=== PATIENT | female | born 1970 | race Caucasian/White ===

== ENCOUNTER 2016-11-23 07:14 | Day surgery (SDC) ==
[2016-08-15 19:13] VITALS: BMI 35.5
[2016-11-23] MEDS ORDERED: LIDOCAINE 1% 20 ML MDV ID ONE (07:40)
[2016-11-23] MEDS ORDERED: ALBUTEROL 0.083% NEB NEB STA (08:01)
[2016-11-23] MEDS ORDERED: DIPRIVAN 20 ML VIAL IVP ONE (08:20)
[2016-11-23] MEDS ORDERED: SUBLIMAZE ONE (08:20)
[2016-11-23] MEDS ORDERED: VERSED ONE (08:20)
[2016-11-23] MEDS ORDERED: ANECTINE ONE (08:20)
[2016-11-23 09:35] VITALS: BP 120/80; TEMP 97.4
--- NOTE | 2016-11-24 12:58 | OP ---
PREOPERATIVE DIAGNOSIS: CHRONIC LARYNGITIS, VOCAL CORD POLYPS POSTOPERATIVE DIAGNOSIS: BILATERAL LEUKOPLAKIA OF VOCAL CORDS OPERATION: DIRECT LARYNGOSCOPY WITH BIOPSY OF VOCAL CORDS PROCEDURE: The patient was taken to surgery, placed on the table and general anesthesia was administered. The anterior laryngoscope was inserted down the level of the vocal cords and using a campos, the scope was secured and then using 400 mm lens, inspection of both vocal cords revealed blocked and moderately severe leukoplakia and edema of both vocal cords. Using both left and right cup forceps, both focal cords were stripped of the area of leukoplakia. Bleeding was minimal. The patient's piriformis sinuses as well as base of the tongue appeared to be free of disease. The patient was then extubated and returned to the recovery room in satisfactory condition. ANDREWS
--- NOTE | 2016-11-24 13:01 | HP ---
HISTORY: This is a 46-year-old white female with history of smoking one pack of cigarettes a day for approximately 40 years. She has had some chronic laryngitis that has not resolved with reasonable medical management. History of ear disease is essentially negative. She does have a bipolar personality and takes medications. PHYSICAL EXAMINATION: EARS: Clear. NOSE: Normal mucosa. MOUTH: Oropharynx reveals no lesions. Indirect laryngoscopy reveals edema of vocal cords. NECK: Supple. CHEST: Clear. HEART: Regular rhythm and rate. ABDOMEN: Nondistended. LOWER EXTREMITIES: Within normal limits. IMPRESSION: 1. VOCAL CORD EDEMA WITH POLYPS. PLAN: Direct laryngoscopy and biopsy. MTDD
== END 2016-11-23 09:53 | disposition home or self-care (01) ==
LOC: SURG 07:14
PROVIDERS: ATTEND Otolaryngology
DX: J37.0 Chronic laryngitis (principal); J38.1 Polyp of vocal cord and larynx; J38.3 Other diseases of vocal cords; F17.210 Nicotine dependence, cigarettes, uncomplicated
CPT/HCPCS: 94640

== ENCOUNTER 2017-04-26 17:15 | Emergency (ER) ==
[2017-04-26] MEDS ORDERED: SODIUM CHLORIDE 1,000 ML IV STA (17:23)
[2017-04-26] MEDS ORDERED: LEVAQUIN 500 MG in PREMIX 100 ML D5W 1 BAG IV STA (17:24)
[2017-04-26 17:26] VITALS: BP 111/78; TEMP 102; BMI 30.7
[2017-04-26] MEDS ORDERED: TYLENOL PO STA (17:34)
[2017-04-26] MEDS ORDERED: LEVAQUIN 100 ML IV ONE (17:46)
[2017-04-26 17:48] LABS: BASOPHILS % (AUTO) 0.2 % (0.0-3.0); HEMATOCRIT 41.6 % (37.0-47.0); HEMOGLOBIN 14.6 g/dl (12.0-16.0); IMMATURE GRANULOCYTE % (AUTO) 0.5 % (0.0-5.0); MEAN CORPUSCULAR HEMOGLOBIN 31.7 pg (27.0-31.0); MEAN CORPUSCULAR HGB CONC 35.1 (31.8-35.4); MEAN CORPUSCULAR VOLUME 90.4 fl (81.0-99.0); MONOCYTES # (AUTO) 0.7 K/uL (0.4-2.0); MONOCYTES % (AUTO) 4.3 (0-10); NEUTROPHILS # (AUTO) 14.3 K/ul (2.0-6.9); PLATELET COUNT 254 10^3/uL (140-440); WHITE BLOOD COUNT 16.01 K/ul (4.6-10.2)
[2017-04-26 18:02] LABS: BILIRUBIN,URINE Negative (NEGATIVE); KETONES,URINE Negative (NEGATIVE); LEUKOCYTE ESTERASE ,URINE Negative (NEGATIVE); NITRITE,URINE Negative (NEGATIVE); PROTEIN,URINE 2+ (NEGATIVE); URINE, BLOOD 2+ (NEGATIVE)
[2017-04-26 18:04] LABS: ALBUMIN 3.5 g/dL (3.4-5.0); ALBUMIN/GLOBULIN RATIO 0.83; ANION GAP 14.5; BILIRUBIN,TOTAL 0.95 mg/dL (0.00-1.20); BUN/CREATININE RATIO 15.66; CALCIUM 9.6 mg/dL (8.2-10.2); CREATININE 0.83 mg/dL (0.60-1.30); POTASSIUM 3.5 mmol/L (3.5-5.10); TOTAL PROTEIN 7.7 g/dL (6.4-8.2)
[2017-04-26 18:07] LABS: ADD URINE MICROSCOPIC YES
[2017-04-26 18:09] LABS: BACTERIA,URINE 1+ (NOT PRESENT)
--- NOTE | 2017-04-26 18:14 | CT ---
Exam: CT abdomen and pelvis without IV contrast. Clinical indication: Flank pain and fever. Comparison is made to the prior study dated 11/22/2007. Findings: There is no free intra-abdominal gas or fluid. There is a 0.4 cm stone obstructing at the right ureteropelvic junction causing mild right-sided hyd ronephrosis. There is a 0.8 cm right-sided nonobstructive renal calculus. There are no other renal calculi bilaterally. The bilateral kidneys are otherwise unremarkable, given the limitations of an unenhanced CT. The liver, gallbladder, pancreas, and spleen are unremarkable given the limitations of an unenhanced CT, other than incidental punctate splenic calcifications consistent with old healed granulomatous disease. There is a 1.9 x 1.5 cm left adrenal nodule which has internal CT density less than 10 consistent wi th intracellular lipids and an incidental diagnosis of an adrenal adenoma. The right adrenal gland is unremarkable. There is early aortoiliac atherosclerotic vascular calcifications. There are no enlarged abdominal or pelvic lymph nodes, by size criteria. There has been a prior hysterectomy. There is mild sigmoid diverticulosis, without evidence of diverticulitis. The appendix appears to b e absent. The remainder of the bowel is unremarkable. There are multiple bilateral calcified pulmonary granulomas, consistent with old healed granulomatou s disease. There is some areas of atelectasis and/or scarring within the right middle lobe and ling kayden. The remainder the visualized portions of the lower thorax are within normal limits. There is lower lumbar degenerative facet disease. The remainder of the visualized bony structures a re unremarkable. Impression: 1. 0.4 cm stone obstructing at the right ureteropelvic junction causing right-sided hydronephrosis. 2. 0.8 cm right-sided nonobstructive renal calculus. No other renal calculi bilaterally. 3. Mild sigmoid diverticulosis, without evidence of diverticulitis.
--- NOTE | 2017-04-26 18:18 | ED.PDOC ---
General ED Provider: Dr. ELIZABETH ARVIZU-ER Chief Complaint: Urinary Problem Stated Complaint: i am hurting and running a fever Time Seen by Physician: 17:20 Mode of Arrival: Walk-In Information Source: Patient Exam Limitations: No limitations Primary Care Provider: APRIL INIGUEZ Nursing and Triage Documentation Reviewed and Agree: Yes Complaint Exam - UTI Female Complaint/Exam Patient Complains of: Reports: Painful urination Onset/Duration: 2 days Symptoms Are: Still present Initial Severity: Mild Current Severity: Moderate Location of Pain: Reports: Right Associated Signs and Symptoms: Reports: Fever, Flank pain CVA Tenderness: Yes Suprapubic Tenderness: No Differential Diagnoses: Pyelonephritis, Ureteral Calculus Review of Systems - Review Of Systems Constitutional: Reports: Chills, Fever Eyes: Reports: No symptoms, Glasses Ears, Nose, Mouth, Throat: Reports: No symptoms Respiratory: Reports: No symptoms Cardiac: Reports: No symptoms GI: Reports: No symptoms : Reports: Frequency, Flank pain Musculoskeletal: Reports: No symptoms Skin: Reports: No symptoms Neurological: Reports: No symptoms Endocrine: Reports: No symptoms Hematologic/Lymphatic: Reports: No symptoms All Other Systems: Reviewed and Negative Past Medical History - Past Medical History Previously Healthy: No Endocrine: Reports: Hypothyroid Cardiovascular: Reports: Hypertension Respiratory: Reports: Asthma, Bronchitis Hematological: Reports: None Gastrointestinal: Reports: None Genitourinary: Reports: None Neuro/Psych: Reports: None Musculoskeletal: Reports: None Cancer: Reports: None Last Menstrual Period: na - Surgical History General Surgical History: Reports: Hysterectomy, Orthopedic (Knee replacement, arm sling ), Other (colon surgery ) - Family History Family History: Reports: Unknown - Social History Smoking Status: Current some day smoker Hx Substance Use: No Alcohol Screening: None Lives: With family - Immunizations Tetanus Shot up to Date: Yes Physical Exam - Physical Exam Appearance: Well-appearing Pain Distress: Mild Eyes: KIARA ENT: Ears normal Neck: Supple Respiratory: Airway patent Cardiovascular: RRR, Pulses normal, No rub, No murmur GI/: Soft, Nontender, No masses, Bowel sounds normal, No Organomegaly Musculoskeletal: Normal strength, ROM intact, No edema, No calf tenderness Skin: Warm, Dry, Normal color Neurological: Sensation intact, Motor intact, Reflexes intact, Cranial nerves intact, Alert, Oriented Psychiatric: Affect appropriate, Mood appropriate Interpretation - Radiology Interpretation Radiology Interpretation By: Radiologist Radiology Results: Positive Exam Interpreted: CT Scan Physician Notification - Case Discussed Physician Notified: [email or web address] Time of Notification: 18:17 Critical Care Note - Critical Care Note Total Time (mins): 0 Course - Course Hematology/Chemistry: 04/26/17 17:35 04/26/17 17:35 Orders, Labs, Meds: Lab Review 04/26/17 04/26/17 17:25 17:35 WBC 16.01 H RBC 4.60 Hgb 14.6 Hct 41.6 MCV 90.4 MCH 31.7 H MCHC 35.1 RDW Coeff of Bel 15.9 H Plt Count 254 Immature Gran % (Auto) 0.5 Neut % (Auto) 89.0 Lymph % (Auto) 6.0 L [place] % (Auto) 4.3 Eos % (Auto) 0.0 Baso % (Auto) 0.2 Immature Gran # (Auto) 0.1 Neut # 14.3 H Lymph # 1.0 [place] # 0.7 Eos # 0.0 Baso # 0.0 Sodium 136 Potassium 3.5 Chloride 102 Carbon Dioxide 23 Anion Gap 14.5 BUN 13 Creatinine 0.83 Estimated GFR (MDRD) 73.00 BUN/Creatinine Ratio 15.66 Glucose 118 H Lactic Acid 15.0 Calcium 9.6 Total Bilirubin 0.95 AST 13 L ALT 8 L Alkaline Phosphatase 95 Total Protein 7.7 Albumin 3.5 Globulin 4.2 Albumin/Globulin Ratio 0.83 Urine Color Yellow Urine Clarity Clear Urine pH 6.0 Ur Specific [place] 1.015 Urine Protein 2+ Urine Glucose (UA) Negative Urine Ketones Negative Urine Blood 2+ Urine Nitrite Negative Urine Bilirubin Negative Urine Urobilinogen 0.2 Ur Leukocyte Esterase Negative Urine Microscopic RBC 5-10 Urine Microscopic WBC 10-20 Ur Squamous Epith Cells 0-2 Urine Bacteria 1+ Orders Category Date Time Status ED IV/MEDIPORT/POWERPORT .ONCE EMERGENCY 04/26/17 17:23 Active BLOOD CULTURE Stat LAB 04/26/17 17:35 Received CBC W/ AUTO DIFF Stat LAB 04/26/17 17:35 Completed COMPREHENSIVE METABOLIC PANEL Stat LAB 04/26/17 17:35 Completed LACTIC ACID Stat LAB 04/26/17 17:35 Completed PROCALCITONIN Stat LAB 04/26/17 17:39 Received URINALYSIS C & S IF INDICATED Stat LAB 04/26/17 17:25 Completed URINE CULTURE Stat LAB 04/26/17 17:25 Received 0.9 % Sodium Chloride [Saline Flush] MEDS 04/26/17 17:23 Ordered 1 syr IVF PRN PRN Acetaminophen [Tylenol] MEDS 04/26/17 17:34 Discontinued 650 mg PO ONCE STA Levofloxacin/D5w [Levaquin] 100 ml MEDS 04/26/17 17:46 Discontinued IV .STK-MED Levofloxacin/D5w [Levaquin] 500 mg MEDS 04/26/17 17:24 Active Premix 100 ml D5w 1 bag IV ONCE Sodium Chloride 0.9% [Sodium Chloride] 1,000 ml MEDS 04/26/17 17:23 Active IV 100 mls/hr CT ABDOMEN/PELVIS WO CONTRAST Stat RADS 04/26/17 17:24 Completed Medications Generic Name Dose Route Start Last Admin Trade Name Freq PRN Reason Stop Dose Admin Levofloxacin/Dextrose 500 mg/ 100 mls @ 100 mls/hr 04/26/17 17:24 04/26/17 18 :05 Dextrose IV 04/26/17 18:23 100 mls/hr ONCE STA Administration Sodium Chloride 1,000 mls @ 100 mls/hr 04/26/17 17:23 04/26/17 18:05 Sodium Chloride IV 04/27/17 03:22 100 mls/hr .Q10H STA Administration Sodium Chloride 1 syr 04/26/17 17:23 Saline Flush IVF PRN PRN To flush IV Discontinued Medications Generic Name Dose Route Start Last Admin Trade Name Freq PRN Reason Stop Dose Admin Acetaminophen 650 mg 04/26/17 17:34 04/26/17 18:05 Tylenol PO 04/26/17 17:35 650 mg ONCE STA Administration Vital Signs: Temp Pulse Resp BP Pulse Ox 04/26/17 17:16 102 F H 130 H 16 111/78 86 L Departure - Departure Time of Disposition: 18:18 Disposition: TSF SHORT-TRM HOSP Discharge Problem: Ureteral stone with hydronephrosis Instructions: Ureteral Stones (ED) Condition: Good Pt referred to PMD for follow-up: Yes Allergies/Adverse Reactions: Allergies amoxicillin trihydrate [From Amoxil] Allergy (Severe, Unverified 03/16/17 10:42) N/V and diarrhea Patient to notify drugstore clarithromycin [From Biaxin] Adverse Reaction (Verified 08/15/16 19:16) duloxetine HCl [From Cymbalta] Adverse Reaction (Verified 08/15/16 19:16) venlafaxine [From Effexor] Adverse Reaction (Verified 08/15/16 19:16) Home Medications: Ambulatory Orders Carbamazepine [Tegretol] 500 mg PO BID 10/03/13 Diazepam [Valium] 10 mg PO TID 10/03/13 Levothyroxine Sodium [Synthroid] 125 mcg PO DAILY 10/03/13 Zolpidem Tartrate [Ambien] 5 mg PO BEDTIME 10/03/13 Carbidopa/Levodopa [Sinemet 25-100 mg Tablet] 1 each PO DAILY 07/16/16 Fluoxetine HCl [Prozac] 60 mg PO DAILY 07/16/16 Gabapentin [Neurontin] 800 mg PO BID 07/16/16 Propranolol HCl [Inderal] 20 mg PO BID 07/16/16 Lurasidone HCl [Latuda] 40 mg PO DAILY 08/15/16 Atorvastatin Calcium [Lipitor] 20 mg PO 20 11/23/16 Budesonide/Formoterol Fumarate [Symbicort 80-4.5 Mcg Inhaler] 2 puff IH BID 09/29 Prazosin HCl [Minipress] 2 mg PO BEDTIME 11/23/16 Ranitidine HCl [Zantac] 150 mg PO BIDAC 11/23/16 Tiotropium [place] [Spiriva] 1 cap IH DAILY 11/23/16 Gabapentin 800 mg PO TID 03/16/17 Transfer Form Completed: Yes Disposition Discussed With: Patient
== END 2017-04-26 19:10 | disposition short-term general hospital (02) ==
LOC: ED 17:15
DX: N13.2 Hydronephrosis with renal and ureteral calculous obstruction (principal); E03.9 Hypothyroidism, unspecified; I10 Essential (primary) hypertension; F17.210 Nicotine dependence, cigarettes, uncomplicated; Z79.899 Other long term (current) drug therapy
CPT/HCPCS: 36415; 80053; 81001; 83605; 84145; 85025; 87040; 87086; 87186; 96360; 96366; 99284

== ENCOUNTER 2017-04-26 19:26 | Outpatient (CLI) ==
[2017-04-26 17:26] VITALS: BMI 30.7
== END 2017-04-26 19:27 | disposition short-term general hospital (02) ==
LOC: AMBL 19:26
PROVIDERS: ATTEND Emergency Medicine
DX: N20.0 Calculus of kidney (principal)

== ENCOUNTER 2017-08-12 16:27 | Emergency (ER) ==
[2017-08-12 16:30] VITALS: BP 134/86; TEMP 97.9; BMI 29.0
--- NOTE | 2017-08-12 17:09 | ED.PDOC ---
General ED Provider: Dr. ASHLEY CHARLES Chief Complaint: Sore Throat Stated Complaint: Sore throat since yesterday, much worse today. Hard to speak secondary to pain. 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 Subjective fever. No other symptoms except tired. Time Seen by Physician: 17:06 Mode of Arrival: Walk-In Information Source: Patient Primary Care Provider: APRIL MANUEL Nursing and Triage Documentation Reviewed and Agree: Yes EENT Complaint Exam - Throat Complaint/Exam Onset/Duration: 1 day Symptoms Are: Still present Timimg: Constant Initial Severity: Moderate Current Severity: Severe Aggravating: Reports: Eating Alleviating: Reports: None Associated Signs and Symptoms: Reports: Dysphagia (mild dysphagia) Related History: Reports: Smoking Maria Dolores-tonsillar Fluctuence: No Scarlatinaform Rash Present: No Exanthem: Present: Pharynx (pustular tonsils) Stridor Present: No Sinus Tenderness Present: No Tonsillar Hypertrophy Present: Yes Tonsillar Exudate Present: Yes (pustular) Maria Dolores-tonsillar Swelling Present: No Adenopathy Present: No Splenomegaly Present: No Differential Diagnoses: Pharyngitis (strep vs viral) Quality Indicators For Pneumonia: SpO2 assessed, Vital signs, Mental status assessed Quality Indicators for Non-Traumatic CP and Syncope: Advised to stop smoking Review of Systems - Review Of Systems Constitutional: Reports: Fever (subjective), Malaise Eyes: Reports: No symptoms Ears, Nose, Mouth, Throat: Reports: Throat pain Respiratory: Reports: Cough (HEAD AND NECK SURGEON) Cardiac: Reports: No symptoms GI: Reports: No symptoms : Reports: No symptoms Musculoskeletal: Reports: No symptoms Skin: Reports: No symptoms Neurological: Reports: No symptoms All Other Systems: Reviewed and Negative Past Medical History - Past Medical History Previously Healthy: No Endocrine: Reports: Hypothyroid Cardiovascular: Reports: Hypertension Respiratory: Reports: Asthma, Bronchitis Hematological: Reports: None Gastrointestinal: Reports: None Genitourinary: Reports: None Neuro/Psych: Reports: None Musculoskeletal: Reports: None Cancer: Reports: None Last Menstrual Period: HYSTERECTOMY - Surgical History General Surgical History: Reports: Hysterectomy, Orthopedic (Knee replacement, arm sling ), Other (colon surgery ) - Family History Family History: Reports: Unknown - Social History Smoking Status: Current some day smoker Smoking Cessation Counseling Time: > 3 min - 10 min Hx Substance Use: No Alcohol Screening: None Lives: Alone - Immunizations Tetanus Shot up to Date: No Influenza Vaccine within 12 Months: No Pneumococcal Vaccine up to Date: No Physical Exam - Physical Exam Appearance: Ill-appearing, Well-nourished, Obese Ill-appearing: Mild Pain Distress: Moderate Eyes: KIARA, EOMI, Conjunctiva clear ENT: Nose normal, TMs [place], Erythema (voice is hoarse whisper), Exudate ( pharynx erythematous with enlarged pustular tonsils, TMs arellano and dull) Neck: Supple Respiratory: Airway patent, Breath sounds clear, Breath sounds equal, Respirations nonlabored Cardiovascular: RRR, Pulses normal, No rub, No murmur GI/: Soft, Nontender, No masses, Bowel sounds normal, No Organomegaly Musculoskeletal: Normal strength, ROM intact, No edema, No calf tenderness Skin: Warm, Dry, Normal color Neurological: Sensation intact, Motor intact, Reflexes intact, Cranial nerves intact, Alert, Oriented Psychiatric: Affect appropriate, Mood appropriate Critical Care Note - Critical Care Note Total Time (mins): 0 Course - Course Orders, Labs, Meds: Orders Category Date Time Status STREP SCREEN Stat LAB 08/12/17 17:05 Uncollected Vital Signs: Temp Pulse Resp BP Pulse Ox 08/12/17 16:27 97.9 F 77 16 134/86 96 Departure - Departure Time of Disposition: 17:39 Disposition: HOME SELF-CARE Discharge Problem: Pharyngitis Instructions: Pharyngitis (ED) Condition: Good Pt referred to PMD for follow-up: No (see doctor if worsens or no better in 3 days) Allergies/Adverse Reactions: Allergies amoxicillin trihydrate [From Amoxil] Allergy (Severe, Unverified 08/12/17 16:30) N/V and diarrhea Patient to notify drugstore clarithromycin [From Biaxin] Adverse Reaction (Verified 08/12/17 16:30) duloxetine HCl [From Cymbalta] Adverse Reaction (Verified 08/12/17 16:30) venlafaxine [From Effexor] Adverse Reaction (Verified 08/12/17 16:30) Home Medications: Ambulatory Orders Carbamazepine [Tegretol] 500 mg PO BID 10/03/13 Diazepam [Valium] 10 mg PO TID 10/03/13 Levothyroxine Sodium [Synthroid] 125 mcg PO DAILY 10/03/13 Zolpidem Tartrate [Ambien] 5 mg PO BEDTIME 10/03/13 Carbidopa/Levodopa [Sinemet 25-100 mg Tablet] 1 each PO DAILY 07/16/16 Fluoxetine HCl [Prozac] 60 mg PO DAILY 07/16/16 Gabapentin [Neurontin] 800 mg PO BID 07/16/16 Propranolol HCl [Inderal] 20 mg PO BID 07/16/16 Lurasidone HCl [Latuda] 40 mg PO DAILY 08/15/16 Atorvastatin Calcium [Lipitor] 20 mg PO 20 11/23/16 Budesonide/Formoterol Fumarate [Symbicort 80-4.5 Mcg Inhaler] 2 puff IH BID 09/29 Prazosin HCl [Minipress] 2 mg PO BEDTIME 11/23/16 Ranitidine HCl [Zantac] 150 mg PO BIDAC 11/23/16 Tiotropium [place] [Spiriva] 1 cap IH DAILY 11/23/16 Gabapentin 800 mg PO TID 03/16/17 Acetaminophen with Codeine [Tylenol #3 Tab] 1 tab PO Q4H PRN #20 tablet Disposition Discussed With: Patient
[2017-08-12] MEDS ORDERED: SOLU-MEDROL 125 MG IM STA (17:33)
== END 2017-08-12 18:00 | disposition home or self-care (01) ==
LOC: ED 16:27
DX: J02.9 Acute pharyngitis, unspecified (principal); F17.210 Nicotine dependence, cigarettes, uncomplicated
CPT/HCPCS: 87651; 87880; 96372; 99283

== ENCOUNTER 2017-10-25 12:35 | Outpatient (CLI) | END 2017-10-25 12:36 | disposition home or self-care (01) | LOC: LAB 12:35 | PROVIDERS: ATTEND Family Medicine | DX: A09 Infectious gastroenteritis and colitis, unspecified (principal) | CPT/HCPCS: 36415 ==

== ENCOUNTER 2017-10-27 12:53 | Emergency (ER) ==
[2017-10-27 12:57] VITALS: BP 118/90; TEMP 98.4; BMI 28.1
[2017-10-27 13:42] LABS: BASOPHILS % (AUTO) 0.2 % (0.0-3.0); EOSINOPHILS # (AUTO) 0.2 K/ul (0.0-0.7); HEMATOCRIT 46.4 % (37.0-47.0); HEMOGLOBIN 16.1 g/dl (12.0-16.0); IMMATURE GRANULOCYTE % (AUTO) 0.3 % (0.0-5.0); LYMPHOCYTES # (AUTO) 3.9 K/uL (0.60-3.4); LYMPHOCYTES % (AUTO) 33.4 (10.0-50.0); MEAN CORPUSCULAR HEMOGLOBIN 32.1 pg (27.0-31.0); MEAN CORPUSCULAR HGB CONC 34.7 (31.8-35.4); MEAN CORPUSCULAR VOLUME 92.6 fl (81.0-99.0); MONOCYTES # (AUTO) 1.5 K/uL (0.4-2.0); MONOCYTES % (AUTO) 12.4 (0-10); NEUTROPHILS % (AUTO) 51.7; PLATELET COUNT 266 10^3/uL (140-440); RED BLOOD COUNT 5.01 10^6/ul (4.20-5.40); WHITE BLOOD COUNT 11.65 K/ul (4.6-10.2)
[2017-10-27 14:05] LABS: FLU INTERNAL QC INTERNAL QC VALID; RAPID FLU A NEGATIVE (NEGATIVE); RAPID FLU B NEGATIVE (NEGATIVE)
[2017-10-27 14:05] LABS: BILIRUBIN,URINE 1+ (NEGATIVE); KETONES,URINE Negative (NEGATIVE); LEUKOCYTE ESTERASE ,URINE 1+ (NEGATIVE); NITRITE,URINE Positive (NEGATIVE); PROTEIN,URINE 1+ (NEGATIVE); URINE, BLOOD 1+ (NEGATIVE)
[2017-10-27 14:11] LABS: ADD URINE MICROSCOPIC YES; BACTERIA,URINE 3+ (NOT PRESENT)
[2017-10-27 14:13] LABS: ALANINE AMINOTRANSFERASE < 6 U/L (12-78); ALBUMIN 3.5 g/dL (3.4-5.0); ALBUMIN/GLOBULIN RATIO 0.88; ALKALINE PHOSPHATASE 130 U/L (42-98); AMYLASE 16 U/L (25-115); ANION GAP 15.9; ASPARTATE AMINO TRANSFERASE 8 U/L (15-37); BILIRUBIN,TOTAL 0.57 mg/dL (0.00-1.20); BLOOD UREA NITROGEN 10 mg/dL (7-18); BUN/CREATININE RATIO 12.34; CALCIUM 9.4 mg/dL (8.2-10.2); CARBON DIOXIDE 21 mmol/L (21-32); CHLORIDE 105 mmol/L (98-107); CREATININE 0.81 mg/dL (0.60-1.30); GLUCOSE 108 mg/dL (70-110); POTASSIUM 2.9 mmol/L (3.5-5.10); SODIUM 139 mmol/L (136-145); TOTAL PROTEIN 7.5 g/dL (6.4-8.2)
[2017-10-27 14:16] LABS: LIPASE 7 U/L (8-78)
[2017-10-27] MEDS ORDERED: POTASSIUM CHLORIDE PREMIX RUN 10 MEQ in PREMIX 100 ML WATER 1 BAG IV STA (14:30)
[2017-10-27] MEDS ORDERED: K-DUR PO STA (14:31)
[2017-10-27] MEDS ORDERED: SODIUM CHLORIDE 1,000 ML IV STA (14:32)
--- NOTE | 2017-10-27 14:34 | CT ---
EXAM: CT abdomen pelvis without intravenous contrast 10/27/2017. Sagittal and coronal reformatted i mages obtained HISTORY: Pain COMPARISON: 04/26/2017 FINDINGS: The liver, gallbladder, adrenal glands, kidneys, spleen and pancreas show no acute abnorma lity. There is no bowel obstruction. Decompressed urinary bladder. Upper normal fluid filled distal small bowel with mesenteric edema. This likely relates to enteritis and/or ileus. No transition point to suggest obstruction. Air-fluid levels throughout the colon mosher ggestive of diarrhea. IMPRESSION: 1. Upper normal-caliber fluid-filled distal small bowel. No transition point to suggest obstruction . This likely represents enteritis and/or ileus 2. Mild associated mesenteric edema. 3. Air-fluid levels of the colon suggesting diarrhea.
[2017-10-27] MEDS ORDERED: POTASSIUM CHLORIDE PREMIX RUN 100 ML IV ONE (14:44)
[2017-10-27 17:02] LABS: BUN/CREATININE RATIO 13.23; CALCIUM 7.5 mg/dL (8.2-10.2); CREATININE 0.68 mg/dL (0.60-1.30)
--- NOTE | 2017-10-27 17:09 | ED.PDOC ---
General ED Provider: Dr. SARATH FOOTE Chief Complaint: Diarrhea Stated Complaint: DIARRHEA , ABDOMINAL PAIN Time Seen by Physician: 13:00 Mode of Arrival: Walk-In Information Source: Patient Exam Limitations: No limitations Primary Care Provider: APRLI MANUEL Nursing and Triage Documentation Reviewed and Agree: Yes Review of Systems - Review Of Systems Constitutional: Reports: No symptoms Eyes: Reports: No symptoms Ears, Nose, Mouth, Throat: Reports: No symptoms Respiratory: Reports: No symptoms Cardiac: Reports: No symptoms GI: Reports: No symptoms : Reports: No symptoms Musculoskeletal: Reports: No symptoms Skin: Reports: No symptoms Neurological: Reports: No symptoms Endocrine: Reports: No symptoms Hematologic/Lymphatic: Reports: No symptoms All Other Systems: Reviewed and Negative Past Medical History - Past Medical History Previously Healthy: No Endocrine: Reports: Hypothyroid Cardiovascular: Reports: Hypertension Respiratory: Reports: Asthma, Bronchitis Hematological: Reports: None Gastrointestinal: Reports: None Genitourinary: Reports: None Neuro/Psych: Reports: None Musculoskeletal: Reports: None Cancer: Reports: None Last Menstrual Period: HYSTERECTOMY - Surgical History General Surgical History: Reports: Hysterectomy, Orthopedic (Knee replacement, arm sling ), Other (colon surgery ) - Family History Family History: Reports: Unknown - Social History Smoking Status: Current some day smoker Hx Substance Use: Yes Alcohol Screening: None - Immunizations Tetanus Shot up to Date: Yes Influenza Vaccine within 12 Months: No Pneumococcal Vaccine up to Date: No Physical Exam - Physical Exam Appearance: Well-appearing, No pain distress, Well-nourished Eyes: KIARA, EOMI, Conjunctiva clear ENT: Ears normal, Nose normal, Oropharynx normal Respiratory: Airway patent, Breath sounds clear, Breath sounds equal, Respirations nonlabored Cardiovascular: RRR, Pulses normal, No rub, No murmur GI/: Soft, Nontender, No masses, Bowel sounds normal, No Organomegaly Musculoskeletal: Normal strength, ROM intact, No edema, No calf tenderness Skin: Warm, Dry, Normal color Neurological: Sensation intact, Motor intact, Reflexes intact, Cranial nerves intact, Alert, Oriented Psychiatric: Affect appropriate, Mood appropriate Critical Care Note - Critical Care Note Total Time (mins): 0 Course - Course Hematology/Chemistry: 10/27/17 13:35 10/27/17 16:42 Orders, Labs, Meds: Lab Review 10/27/17 10/27/17 10/27/17 13:24 13:35 13:35 WBC 11.65 H RBC 5.01 Hgb 16.1 H Hct 46.4 MCV 92.6 MCH 32.1 H MCHC 34.7 RDW Coeff of Bel 14.6 Plt Count 266 Immature Gran % (Auto) 0.3 Neut % (Auto) 51.7 Lymph % (Auto) 33.4 [place] % (Auto) 12.4 H Eos % (Auto) 2.0 Baso % (Auto) 0.2 Immature Gran # (Auto) 0.0 Neut # 6.0 Lymph # 3.9 H [place] # 1.5 Eos # 0.2 Baso # 0.0 Sodium 139 Potassium 2.9 L Chloride 105 Carbon Dioxide 21 Anion Gap 15.9 BUN 10 Creatinine 0.81 Estimated GFR (MDRD) 75.00 BUN/Creatinine Ratio 12.34 Glucose 108 Calcium 9.4 Total Bilirubin 0.57 AST 8 L ALT < 6 L Alkaline Phosphatase 130 H Total Protein 7.5 Albumin 3.5 Globulin 4.0 Albumin/Globulin Ratio 0.88 Amylase 16 L Lipase 7 L Urine Color Urine Clarity Urine pH Ur Specific [place] Urine Protein Urine Glucose (UA) Urine Ketones Urine Blood Urine Nitrite Urine Bilirubin Urine Urobilinogen Ur Leukocyte Esterase Urine Microscopic RBC Urine Microscopic WBC Ur Squamous Epith Cells Urine Bacteria Influenza A (Rapid) Negative Influenza B (Rapid) Negative 10/27/17 10/27/17 13:47 16:42 WBC RBC Hgb Hct MCV MCH MCHC RDW Coeff of Bel Plt Count Immature Gran % (Auto) Neut % (Auto) Lymph % (Auto) [place] % (Auto) Eos % (Auto) Baso % (Auto) Immature Gran # (Auto) Neut # Lymph # [place] # Eos # Baso # Sodium 141 Potassium 3.0 L Chloride 113 H Carbon Dioxide 18 L Anion Gap 13.0 BUN 9 Creatinine 0.68 Estimated GFR (MDRD) 92.00 BUN/Creatinine Ratio 13.23 Glucose 91 Calcium 7.5 L Total Bilirubin AST ALT Alkaline Phosphatase Total Protein Albumin Globulin Albumin/Globulin Ratio Amylase Lipase Urine Color Yellow Urine Clarity Cloudy Urine pH 6.0 Ur Specific [place] 1.020 Urine Protein 1+ Urine Glucose (UA) Negative Urine Ketones Negative Urine Blood 1+ Urine Nitrite Positive Urine Bilirubin 1+ Urine Urobilinogen 0.2 Ur Leukocyte Esterase 1+ Urine Microscopic RBC 5-10 Urine Microscopic WBC 20-30 Ur Squamous Epith Cells 5-10 Urine Bacteria 3+ Influenza A (Rapid) Influenza B (Rapid) Orders Category Date Time Status AMYLASE Stat LAB 10/27/17 13:35 Completed BMP [BASIC METABOLIC PANEL] Stat LAB 10/27/17 16:42 Completed CBC W/ AUTO DIFF Stat LAB 10/27/17 13:35 Completed COMPREHENSIVE METABOLIC PANEL Stat LAB 10/27/17 13:35 Completed LIPASE Stat LAB 10/27/17 13:35 Completed MOLECULAR GROUP A STREP Stat LAB 10/27/17 13:24 Results RAPID FLU A/B Stat LAB 10/27/17 13:24 Completed STREP SCREEN Stat LAB 10/27/17 13:24 Results URINALYSIS C & S IF INDICATED Stat LAB 10/27/17 13:47 Completed URINE CULTURE Stat LAB 10/27/17 13:47 Received Potassium Chloride [K-Dur] MEDS 10/27/17 14:31 Discontinued 40 meq PO ONCE STA Potassium Chloride [Potassium Chloride Premix Run] 10 MEDS 10/27/17 14:30 Discontinued meq Premix 100 ml Water 1 bag IV ONCE Potassium Chloride [Potassium Chloride [place]] 100 MEDS 10/27/17 14:44 Discontinued ml IV .STK-MED Sodium Chloride 0.9% [Sodium Chloride] 1,000 ml MEDS 10/27/17 14:[address] ABDOMEN/PELVIS WO CONTRAST Stat RADS 10/27/17 13:21 Completed Medications Discontinued Medications Generic Name Dose Route Start Last Admin Trade Name Freq PRN Reason Stop Dose Admin Potassium Chloride 10 meq/ 100 mls @ 100 mls/hr 10/27/17 14:30 10/27/17 14:49 Sterile Water IV 10/27/17 15:29 100 mls/hr ONCE STA Administration Sodium Chloride 1,000 mls @ 1,000 mls/hr 10/27/17 14:32 10/27/17 14:49 Sodium Chloride IV 10/27/17 15:31 1,000 mls/hr BOLUS STA Administration Potassium Chloride 40 meq 10/27/17 14:31 10/27/17 14:49 K-Dur PO 10/27/17 14:32 40 meq ONCE STA Administration Vital Signs: Temp Pulse Resp BP Pulse Ox 10/27/17 12:53 98.4 F 124 H 20 118/90 96 Departure - Departure Time of Disposition: 17:08 Disposition: HOME SELF-CARE Discharge Problem: Diarrhea, Gastroenteritis, Hypokalemia Instructions: Hypokalemia (ED), Abdominal Pain (ED) Condition: Good Pt referred to PMD for follow-up: Yes Additional Instructions: Please call your Family Physician as soon as possible to schedule a follow-up appointment.HAVE YOUR POTASSIUM CHECKED SOON POSSIBLE Allergies/Adverse Reactions: Allergies amoxicillin trihydrate [From Amoxil] Allergy (Severe, Unverified 10/27/17 12:57) N/V and diarrhea Patient to notify drugstore clarithromycin [From Biaxin] Adverse Reaction (Verified 10/27/17 12:57) duloxetine HCl [From Cymbalta] Adverse Reaction (Verified 10/27/17 12:57) venlafaxine [From Effexor] Adverse Reaction (Verified 10/27/17 12:57) Home Medications: Ambulatory Orders Carbamazepine [Tegretol] 500 mg PO BID 10/03/13 Diazepam [Valium] 10 mg PO TID 10/03/13 Levothyroxine Sodium [Synthroid] 125 mcg PO DAILY 10/03/13 Zolpidem Tartrate [Ambien] 5 mg PO BEDTIME 10/03/13 Carbidopa/Levodopa [Sinemet 25-100 mg Tablet] 1 each PO DAILY 07/16/16 Propranolol HCl [Inderal] 20 mg PO BID 07/16/16 Lurasidone HCl [Latuda] 40 mg PO DAILY 08/15/16 Atorvastatin Calcium [Lipitor] 20 mg PO 20 11/23/16 Budesonide/Formoterol Fumarate [Symbicort 80-4.5 Mcg Inhaler] 2 puff IH BID 09/29 Prazosin HCl [Minipress] 2 mg PO BEDTIME 11/23/16 Ranitidine HCl [Zantac] 150 mg PO BIDAC 11/23/16 Tiotropium [place] [Spiriva] 1 cap IH DAILY 11/23/16 Gabapentin 800 mg PO TID 03/16/17
== END 2017-10-27 17:40 | disposition home or self-care (01) ==
LOC: ED 12:53
DX: K52.9 Noninfective gastroenteritis and colitis, unspecified (principal); E87.6 Hypokalemia; F17.210 Nicotine dependence, cigarettes, uncomplicated
CPT/HCPCS: 36415; 80048; 80053; 81001; 82150; 83690; 85025; 87086; 87186; 87651; 87804; 87880; 96365; 99283

== ENCOUNTER 2017-11-01 09:42 | Outpatient (CLI) ==
[2017-11-01 10:34] LABS: ANION GAP 12.8; CALCIUM 8.9 mg/dL (8.2-10.2); CREATININE 0.75 mg/dL (0.60-1.30); POTASSIUM 3.8 mmol/L (3.5-5.10)
== END 2017-11-01 09:43 | disposition home or self-care (01) ==
LOC: LAB 09:42
PROVIDERS: ATTEND Family Medicine
DX: D72.829 Elevated white blood cell count, unspecified (principal)
CPT/HCPCS: 36415; 80048

== ENCOUNTER 2017-11-10 13:25 | Emergency (ER) ==
[2017-11-10 13:48] VITALS: BP 143/90; TEMP 98.6; BMI 26.6
--- NOTE | 2017-11-10 14:27 | DI ---
Exam: Three x-rays of the left elbow. Comparison: None available. Reason for exam: Pain. FINDINGS: No obvious fracture or dislocation. The joint spaces appear well maintained. No unexpect ed calcific soft tissue densities or radiopaque retained foreign bodies. Impression: No obvious fracture or malalignment is seen in the left elbow. If clinical concern exis ts for occult injury, repeat imaging may be performed in seven - 10 days to look for sclerotic change .
--- NOTE | 2017-11-10 15:23 | ED.PDOC ---
General ED Provider: Dr. SARATH FOOTE Chief Complaint: Elbow Pain/Injury Stated Complaint: left elbow pain Time Seen by Physician: 14:00 Mode of Arrival: Walk-In Information Source: Patient Exam Limitations: No limitations Primary Care Provider: APRIL MANUEL Nursing and Triage Documentation Reviewed and Agree: Yes Reviewed sepsis parameters & appropriate labs ordered?: Yes System Inflammatory Response Syndrome: Not Applicable Sepsis Protocol: For patient's 13 years and over: Temp is 96.8 and below OR 101 and greater Pulse >90 BPM Resp >20/minute Acutely Altered Mental Status Are patient's symptoms suggestive of a new infection, such as: -Pneumonia -Skin, Soft Tissue -Endocarditis -UTI -Bone, Joint Infection -Implantable Device -Acute Abdominal Infection -Wound Infection -Meningitis -Blood Stream Catheter Infection -Unknown Musculoskeletal Complaint Exam - Elbow Pain Complaint/Exam Mechanism of Injury: Reports: Trauma Onset/Duration: blunt trauma force 2 hrs ago today Symptoms Are: Still present Onset of Pain: Reports: Hours Initial Severity: Mild Current Severity: Mild Location: Reports: Discrete Character: Reports: Aching Alleviating: Reports: Rest Aggravating: Reports: Movement Associated Signs and Symptoms: Denies: Swelling, Redness, Bruising, Fever, Weakness, Numbness, Tingling Related Surgical History: Reports: None Tenderness: Present: Medial Condyle, Lateral Condyle, Olecranon Limited Range of Motion: Absent: Flexion, Extension, Pronation, Supination Differential Diagnoses: Closed Fracture, Sprain, Strain Review of Systems - Review Of Systems Constitutional: Reports: No symptoms Eyes: Reports: No symptoms Ears, Nose, Mouth, Throat: Reports: No symptoms Respiratory: Reports: No symptoms Cardiac: Reports: No symptoms GI: Reports: No symptoms : Reports: No symptoms Musculoskeletal: Reports: Joint pain (left elbow) Skin: Reports: No symptoms Neurological: Reports: No symptoms Endocrine: Reports: No symptoms Hematologic/Lymphatic: Reports: No symptoms All Other Systems: Reviewed and Negative Past Medical History - Past Medical History Previously Healthy: No Endocrine: Reports: Hypothyroid Cardiovascular: Reports: Hypertension Respiratory: Reports: Asthma, Bronchitis Hematological: Reports: None Gastrointestinal: Reports: None Genitourinary: Reports: None Neuro/Psych: Reports: None Musculoskeletal: Reports: None Cancer: Reports: None Last Menstrual Period: n/a - Surgical History General Surgical History: Reports: Hysterectomy, Orthopedic (Knee replacement, arm sling ), Other (colon surgery ) - Family History Family History: Reports: Unknown - Social History Smoking Status: Current some day smoker Hx Substance Use: Yes Alcohol Screening: None - Immunizations Influenza Vaccine within 12 Months: No Pneumococcal Vaccine up to Date: No Physical Exam - Physical Exam Appearance: Well-appearing, No pain distress, Well-nourished Eyes: KIARA, EOMI, Conjunctiva clear ENT: Ears normal, Nose normal, Oropharynx normal Respiratory: Airway patent, Breath sounds clear, Breath sounds equal, Respirations nonlabored Cardiovascular: RRR, Pulses normal, No rub, No murmur GI/: Soft, Nontender, No masses, Bowel sounds normal, No Organomegaly Musculoskeletal: Normal strength, ROM intact, No edema, No calf tenderness Skin: Warm, Dry, Normal color Neurological: Sensation intact, Motor intact, Reflexes intact, Cranial nerves intact, Alert, Oriented Psychiatric: Affect appropriate, Mood appropriate Interpretation - Radiology Interpretation Radiology Interpretation By: Radiologist Radiology Results: No acute changes Critical Care Note - Critical Care Note Total Time (mins): 0 Course - Course Orders, Labs, Meds: Orders Category Date Time Status ELBOW, LEFT MIN 3 VIEWS Stat RADS 11/10/17 14:00 Completed Vital Signs: Temp Pulse Resp BP Pulse Ox 11/10/17 13:44 98.6 F 62 16 143/90 H 94 L Departure - Departure Time of Disposition: 15:22 Disposition: HOME SELF-CARE Discharge Problem: Elbow pain, left Instructions: Arthralgia (ED), Elbow Sprain (ED) Condition: Good Pt referred to PMD for follow-up: Yes Additional Instructions: Please call your Family Physician as soon as possible to schedule a follow-up appointment. Allergies/Adverse Reactions: Allergies amoxicillin trihydrate [From Amoxil] Allergy (Severe, Verified 11/10/17 13:48) N/V and diarrhea Patient to notify drugstore clarithromycin [From Biaxin] Adverse Reaction (Verified 11/10/17 13:48) duloxetine HCl [From Cymbalta] Adverse Reaction (Verified 11/10/17 13:48) venlafaxine [From Effexor] Adverse Reaction (Verified 11/10/17 13:48) Home Medications: Ambulatory Orders Carbamazepine [Tegretol] 500 mg PO BID 10/03/13 Diazepam [Valium] 10 mg PO TID 10/03/13 Levothyroxine Sodium [Synthroid] 125 mcg PO DAILY 10/03/13 Zolpidem Tartrate [Ambien] 5 mg PO BEDTIME 10/03/13 Carbidopa/Levodopa [Sinemet 25-100 mg Tablet] 1 each PO DAILY 07/16/16 Propranolol HCl [Inderal] 20 mg PO BID 07/16/16 Lurasidone HCl [Latuda] 40 mg PO DAILY 08/15/16 Atorvastatin Calcium [Lipitor] 20 mg PO 20 11/23/16 Budesonide/Formoterol Fumarate [Symbicort 80-4.5 Mcg Inhaler] 2 puff IH BID 09/29 Prazosin HCl [Minipress] 2 mg PO BEDTIME 11/23/16 Ranitidine HCl [Zantac] 150 mg PO BIDAC 11/23/16 Tiotropium [place] [Spiriva] 1 cap IH DAILY 11/23/16 Gabapentin 800 mg PO TID 03/16/17
== END 2017-11-10 15:37 | disposition home or self-care (01) ==
LOC: ED 13:25
DX: M25.522 Pain in left elbow (principal); W22.8XXA Striking against or struck by other objects, initial encounter; F17.210 Nicotine dependence, cigarettes, uncomplicated
CPT/HCPCS: 99283

== ENCOUNTER 2017-11-28 11:14 | Outpatient (CLI) | END 2017-11-28 11:15 | disposition home or self-care (01) | LOC: LAB 11:14 | PROVIDERS: ATTEND Physician Assistant | DX: E78.5 Hyperlipidemia, unspecified (principal); F41.9 Anxiety disorder, unspecified; I10 Essential (primary) hypertension; J40 Bronchitis, not specified as acute or chronic | CPT/HCPCS: 36415; 80053; 80061; 80156; 84443; 85025 ==

== ENCOUNTER 2017-12-17 10:33 | Emergency (ER) ==
[2017-12-17 10:40] VITALS: BP 112/87; TEMP 97.9; BMI 28.1
[2017-12-17] MEDS ORDERED: SODIUM CHLORIDE 1,000 ML IV STA (10:54)
--- NOTE | 2017-12-17 11:48 | CT ---
EXAM: CT chest without contrast HISTORY: Cough COMPARISON: 07/16/2016 TECHNIQUE: CT chest performed without intravenous contrast. Coronal and sagittal reformatted images obtained. FINDINGS: Thoracic inlet unremarkable. Heart normal in size. Trace pericardial effusion. Aorta no rmal in caliber. Evaluation for lymphadenopathy limited without contrast. No lymphadenopathy identi fied. Granulomas calcification. Esophagus unremarkable. Visualized portion upper abdomen [place] no acute abnormality. Stable mild thickening bilateral adrenal glands. No acute abnormalities o f the bones. Degenerative change in the spine. Central airway patent. No airspace consolidation. No pleural effusion. No pneumothorax. Mild bilateral lower airway thickening. Mild scarring in the right middle lobe and the left. Mild mosaic attenuation lung bases suggesting air trapping. No airs pace consolidation. No pleural effusion. No pneumothorax. IMPRESSION: 1. Bilateral lower airway thickening, suggesting infectious/inflammatory bronchitis. No airspace con solidation. 2. Mild chronic scarring in the right middle lobe and lingula. 3. Mild air trapping. 4. Trace pericardial effusion . 5. Findings of old granulomatous disease.
--- NOTE | 2017-12-17 12:03 | ED.PDOC ---
General ED Provider: Dr. SARATH FOOTE Chief Complaint: Sore Throat Stated Complaint: sore throat Time Seen by Physician: 10:40 Mode of Arrival: Walk-In Information Source: Patient Exam Limitations: No limitations Primary Care Provider: APRIL MANUEL Nursing and Triage Documentation Reviewed and Agree: Yes Reviewed sepsis parameters & appropriate labs ordered?: Yes System Inflammatory Response Syndrome: Not Applicable Sepsis Protocol: For patient's 13 years and over: Temp is 96.8 and below OR 101 and greater Pulse >90 BPM Resp >20/minute Acutely Altered Mental Status Are patient's symptoms suggestive of a new infection, such as: -Pneumonia -Skin, Soft Tissue -Endocarditis -UTI -Bone, Joint Infection -Implantable Device -Acute Abdominal Infection -Wound Infection -Meningitis -Blood Stream Catheter Infection -Unknown System Inflammatory Response Syndrome: Not Applicable EENT Complaint Exam - Throat Complaint/Exam Symptoms Are: Still present Timimg: Constant Initial Severity: Mild Current Severity: Mild Alleviating: Reports: None Associated Signs and Symptoms: Reports: Cough Uvula Midline: Yes Maria Dolores-tonsillar Fluctuence: No Scarlatinaform Rash Present: No Stridor Present: No Sinus Tenderness Present: No Tonsillar Hypertrophy Present: No Tonsillar Exudate Present: No Maria Dolores-tonsillar Swelling Present: No Adenopathy Present: No Splenomegaly Present: No Differential Diagnoses: Influenza, Pharyngitis Review of Systems - Review Of Systems Constitutional: Reports: Malaise, Loss of appetite Eyes: Reports: No symptoms Ears, Nose, Mouth, Throat: Reports: No symptoms Respiratory: Reports: Cough Cardiac: Reports: No symptoms GI: Reports: No symptoms : Reports: No symptoms Musculoskeletal: Reports: No symptoms Skin: Reports: No symptoms Neurological: Reports: No symptoms Endocrine: Reports: No symptoms Hematologic/Lymphatic: Reports: No symptoms All Other Systems: Reviewed and Negative Past Medical History - Past Medical History Previously Healthy: No Endocrine: Reports: Hypothyroid Cardiovascular: Reports: Hypertension Respiratory: Reports: Asthma, Bronchitis Hematological: Reports: None Gastrointestinal: Reports: None Genitourinary: Reports: None Neuro/Psych: Reports: None Musculoskeletal: Reports: None Cancer: Reports: None Last Menstrual Period: na - Surgical History General Surgical History: Reports: Hysterectomy, Orthopedic (Knee replacement, arm sling ), Other (colon surgery ) - Family History Family History: Reports: Unknown - Social History Smoking Status: Current every day smoker Hx Substance Use: No Alcohol Screening: Occasionally - Immunizations Tetanus Shot up to Date: Yes Influenza Vaccine within 12 Months: No Pneumococcal Vaccine up to Date: No Physical Exam - Physical Exam Appearance: Ill-appearing Ill-appearing: Mild Pain Distress: Mild Eyes: KIARA, EOMI, Conjunctiva clear ENT: Ears normal, Nose normal, Dry mucosa Respiratory: Rhonchi Cardiovascular: RRR, Pulses normal, No rub, No murmur GI/: Soft, Nontender, No masses, Bowel sounds normal, No Organomegaly Musculoskeletal: Normal strength, ROM intact, No edema, No calf tenderness Skin: Warm, Dry, Normal color Neurological: Sensation intact, Motor intact, Reflexes intact, Cranial nerves intact, Alert, Oriented Psychiatric: Affect appropriate, Mood appropriate Critical Care Note - Critical Care Note Total Time (mins): 0 Course - Course Hematology/Chemistry: 12/17/17 11:05 12/17/17 11:05 Orders, Labs, Meds: Lab Review 12/17/17 12/17/17 12/17/17 11:05 11:05 11:05 WBC 7.56 RBC 3.85 L Hgb 12.8 Hct 37.9 MCV 98.4 MCH 33.2 H MCHC 33.8 RDW Coeff of Bel 15.8 H Plt Count 224 Immature Gran % (Auto) 0.3 Neut % (Auto) 43.9 Lymph % (Auto) 46.6 [place] % (Auto) 7.1 Eos % (Auto) 1.7 Baso % (Auto) 0.4 Immature Gran # (Auto) 0.0 Neut # 3.3 Lymph # 3.5 H [place] # 0.5 Eos # 0.1 Baso # 0.0 Sodium 140 Potassium 4.1 Chloride 107 Carbon Dioxide 24 Anion Gap 13.1 BUN 14 Creatinine 0.64 Estimated GFR (MDRD) 99.00 BUN/Creatinine Ratio 21.87 Glucose 99 Calcium 8.8 Total Bilirubin 0.3 AST 11 L ALT 11 L Alkaline Phosphatase 110 H Total Protein 6.2 L Albumin 3.3 L Globulin 2.9 Albumin/Globulin Ratio 1.14 Influenza A (Rapid) Negative by naat Influenza B (Rapid) Negative by naat Orders Category Date Time Status EKG-(ED ONLY) Stat CARDIO 12/17/17 10:51 Ordered ED IV/MEDIPORT/POWERPORT .ONCE EMERGENCY 12/17/17 10:51 Active ED IV/MEDIPORT/POWERPORT .ONCE EMERGENCY 12/17/17 10:52 Active CBC W/ AUTO DIFF Stat LAB 12/17/17 11:05 Completed COMPREHENSIVE METABOLIC PANEL Stat LAB 12/17/17 11:05 Completed FLU A/B MOLECULAR Stat LAB 12/17/17 11:05 Completed URINALYSIS C & S IF INDICATED Stat LAB 12/17/17 10:51 Uncollected 0.9 % Sodium Chloride [Saline Flush] MEDS 12/17/17 10:51 Active 1 syr IVF PRN PRN 0.9 % Sodium Chloride [Saline Flush] MEDS 12/17/17 10:52 Active 1 syr IVF PRN PRN Sodium Chloride 0.9% [Sodium Chloride] 1,000 ml MEDS 12/17/17 10:[address] CHEST W/O CONTRAST Stat RADS 12/17/17 10:51 Completed Medications Generic Name Dose Route Start Last Admin Trade Name Freq PRN Reason Stop Dose Admin Sodium Chloride 1 syr 12/17/17 10:51 Saline Flush IVF PRN PRN To flush IV Sodium Chloride 1 syr 12/17/17 10:52 Saline Flush IVF PRN PRN To flush IV Discontinued Medications Generic Name Dose Route Start Last Admin Trade Name Freq PRN Reason Stop Dose Admin Sodium Chloride 1,000 mls @ 1,000 mls/hr 12/17/17 10:54 12/17/17 11:26 Sodium Chloride IV 12/17/17 11:53 1,000 mls/hr BOLUS STA Administration Vital Signs: Temp Pulse Resp BP Pulse Ox 12/17/17 10:34 97.9 F 60 22 112/87 30 L Departure - Departure Time of Disposition: 12:02 Disposition: HOME SELF-CARE Discharge Problem: Sore throat symptom, Acute viral syndrome Instructions: Viral Syndrome (ED) Condition: Good Pt referred to PMD for follow-up: Yes IPMP verified?: Yes Additional Instructions: Please call your Family Physician as soon as possible to schedule a follow-up appointment. Allergies/Adverse Reactions: Allergies amoxicillin trihydrate [From Amoxil] Allergy (Severe, Verified 12/17/17 10:41) N/V and diarrhea Patient to notify drugstore clarithromycin [From Biaxin] Adverse Reaction (Verified 12/17/17 10:41) duloxetine HCl [From Cymbalta] Adverse Reaction (Verified 12/17/17 10:41) venlafaxine [From Effexor] Adverse Reaction (Verified 12/17/17 10:41) Home Medications: Ambulatory Orders Carbamazepine [Tegretol] 500 mg PO BID 10/03/13 Diazepam [Valium] 10 mg PO TID 10/03/13 Levothyroxine Sodium [Synthroid] 125 mcg PO DAILY 10/03/13 Zolpidem Tartrate [Ambien] 5 mg PO BEDTIME 10/03/13 Carbidopa/Levodopa [Sinemet 25-100 mg Tablet] 1 each PO DAILY 07/16/16 Propranolol HCl [Inderal] 20 mg PO BID 07/16/16 Lurasidone HCl [Latuda] 40 mg PO DAILY 08/15/16 Atorvastatin Calcium [Lipitor] 20 mg PO 20 11/23/16 Budesonide/Formoterol Fumarate [Symbicort 80-4.5 Mcg Inhaler] 2 puff IH BID 09/29 Prazosin HCl [Minipress] 2 mg PO BEDTIME 11/23/16 Ranitidine HCl [Zantac] 150 mg PO BIDAC 11/23/16 Tiotropium [place] [Spiriva] 1 cap IH DAILY 11/23/16 Gabapentin 800 mg PO TID 03/16/17
== END 2017-12-17 13:41 | disposition home or self-care (01) ==
LOC: ED 10:33
DX: J02.9 Acute pharyngitis, unspecified (principal); B34.9 Viral infection, unspecified; F17.210 Nicotine dependence, cigarettes, uncomplicated
CPT/HCPCS: 36415; 80053; 85025; 87502; 87651; 96360; 96361; 99283

== ENCOUNTER 2018-01-18 10:26 | Emergency (ER) ==
[2018-01-18 10:32] VITALS: BP 133/77; TEMP 98.1; BMI 31.3
--- NOTE | 2018-01-18 12:57 | ED.PDOC ---
General ED Provider: Dr. ELIZABETH WILLSON Chief Complaint: Respiratory Complaint Stated Complaint: Cough congestion, body aches and chills. Cough non productive. Time Seen by Physician: 12:15 Mode of Arrival: Walk-In Information Source: Patient Exam Limitations: No limitations Primary Care Provider: APRIL MANUEL Nursing and Triage Documentation Reviewed and Agree: Yes Reviewed sepsis parameters & appropriate labs ordered?: Yes System Inflammatory Response Syndrome: Not Applicable Sepsis Protocol: For patient's 13 years and over: Temp is 96.8 and below OR 101 and greater Pulse >90 BPM Resp >20/minute Acutely Altered Mental Status Are patient's symptoms suggestive of a new infection, such as: -Pneumonia -Skin, Soft Tissue -Endocarditis -UTI -Bone, Joint Infection -Implantable Device -Acute Abdominal Infection -Wound Infection -Meningitis -Blood Stream Catheter Infection -Unknown System Inflammatory Response Syndrome: Not Applicable Respiratory Complaint Exam - Respiratory Complaint/Exam Symptoms Are: Still present Timing: Intermittent Initial Severity: Mild Current Severity: None Location: Chest Character: Reports: Non-productive cough Aggravating: Reports: None Alleviating: Reports: None Associated Signs and Symptoms: Reports: Chills, URI, Nasal congestion, Sore throat. Denies: Rapid breathing, Dyspnea, Fever, Calf swelling, Edema, Sinus discomfort, Vomiting Related History: Denies: Similar episode, Allergic reaction Related Surgical History: Reports: None Pulmonary Embolism Risk Factors: None Cardiac Risk Factors: Reports: None Pseudomonas Risk Factors: Reports: None Tuberculosis Risk Factors: Reports: None Status Asthmaticus Risk Factors: Reports: None Home Oxygen Use: No Recent Stress Test: No Recent Echo/LV Function: No Current Antibiotic Use: No Current Asthma Medication Use: No Respiratory Distress: None Differential Diagnoses: COPD Exacerbation, URI, Influenza Review of Systems - Review Of Systems Constitutional: Reports: No symptoms Eyes: Reports: No symptoms Ears, Nose, Mouth, Throat: Reports: No symptoms Respiratory: Reports: Cough Cardiac: Reports: No symptoms GI: Reports: No symptoms : Reports: No symptoms Musculoskeletal: Reports: No symptoms Skin: Reports: No symptoms Neurological: Reports: No symptoms Endocrine: Reports: No symptoms Hematologic/Lymphatic: Reports: No symptoms All Other Systems: Reviewed and Negative Past Medical History - Past Medical History Previously Healthy: No Endocrine: Reports: Hypothyroid Cardiovascular: Reports: Hypertension Respiratory: Reports: Asthma, Bronchitis Hematological: Reports: None Gastrointestinal: Reports: None Genitourinary: Reports: None Neuro/Psych: Reports: None Musculoskeletal: Reports: None Cancer: Reports: None Last Menstrual Period: hysterectomy - Surgical History General Surgical History: Reports: Hysterectomy, Orthopedic (Knee replacement, arm sling ), Other (colon surgery ) - Family History Family History: Reports: Unknown - Social History Smoking Status: Current every day smoker, Heavy tobacco smoker Hx Substance Use: No Alcohol Screening: None - Immunizations Influenza Vaccine within 12 Months: No Pneumococcal Vaccine up to Date: No Physical Exam - Physical Exam Appearance: Well-appearing, Ill-appearing Ill-appearing: Mild Pain Distress: None Eyes: KIARA, EOMI, Conjunctiva clear, Conjunctiva inflammed ENT: Ears normal, Nose normal, Oropharynx normal Neck: Nonsupple Respiratory: Airway patent, Breath sounds clear, Breath sounds diminished, Respirations nonlabored, Wheezes Cardiovascular: RRR, Pulses normal GI/: Soft, Nontender, No masses Musculoskeletal: Normal strength, ROM intact Skin: Warm, Dry, Normal color Neurological: Sensation intact, Motor intact, Oriented Psychiatric: Affect appropriate, Mood appropriate Critical Care Note - Critical Care Note Total Time (mins): 0 Course - Course Hematology/Chemistry: 01/18/18 13:22 01/18/18 13:22 Orders, Labs, Meds: Lab Review 01/18/18 01/18/18 01/18/18 13:22 13:22 13:35 WBC 7.39 RBC 4.02 L Hgb 13.4 Hct 39.4 MCV 98.0 MCH 33.3 H MCHC 34.0 RDW Coeff of Bel 14.3 Plt Count 229 Immature Gran % (Auto) 0.4 Neut % (Auto) 46.5 Lymph % (Auto) 41.7 Gilliam % (Auto) 9.2 Eos % (Auto) 1.8 Baso % (Auto) 0.4 Immature Gran # (Auto) 0.0 Neut # (Auto) 3.4 Lymph # (Auto) 3.1 Gilliam # (Auto) 0.7 Eos # (Auto) 0.1 Baso # (Auto) 0.0 Sodium 140 Potassium 4.3 Chloride 107 Carbon Dioxide 23 Anion Gap 14.3 BUN 16 Creatinine 0.66 Estimated GFR (MDRD) 95.00 BUN/Creatinine Ratio 24.24 Glucose 87 Calcium 9.0 Total Bilirubin 0.2 AST 13 L ALT 12 Alkaline Phosphatase 104 H Total Protein 6.9 Albumin 3.4 Globulin 3.5 Albumin/Globulin Ratio 0.97 Influ A Molecular Assay Negative by naat Influ B Molecular Assay Negative by naat Orders Category Date Time Status CBC W/ AUTO DIFF Stat LAB 01/18/18 13:22 Completed CMP [COMPREHENSIVE METABOLIC PANEL] Stat LAB 01/18/18 13:22 Completed FLU A & B MOLECULAR [FLU A/B MOLECULAR] Stat LAB 01/18/18 13:35 Completed RAPID STREP SCREEN [MOLECULAR GROUP A STREP] Stat LAB 01/18/18 13:35 Completed CHEST, 2 VIEWS PA & LAT Stat RADS 01/18/18 12:52 Completed Vital Signs: Temp Pulse Resp BP Pulse Ox 01/18/18 10:26 98.1 F 75 20 133/77 92 L Departure - Departure Time of Disposition: 14:45 Disposition: HOME SELF-CARE Discharge Problem: URI (upper respiratory infection) Instructions: Upper Respiratory Infection (ED) Condition: Good Pt referred to PMD for follow-up: Yes IPMP verified?: No Additional Instructions: TAKE MEDICATION PRESCRIBED FOLLOW UP WITH PCP PRESCRIBED Prescriptions: Amoxicillin 875 mg PO BID #20 tablet Benzonatate [Tessalon Perles] 100 mg PO TID PRN #30 capsule PRN Reason: Uncontrolled coughing Allergies/Adverse Reactions: Allergies clarithromycin [From Biaxin] Adverse Reaction (Verified 01/18/18 10:34) duloxetine HCl [From Cymbalta] Adverse Reaction (Verified 01/18/18 10:34) venlafaxine [From Effexor] Adverse Reaction (Verified 01/18/18 10:34) Home Medications: Ambulatory Orders Carbamazepine [Tegretol] 500 mg PO BID 10/03/13 Diazepam [Valium] 10 mg PO QID 10/03/13 Levothyroxine Sodium [Synthroid] 125 mcg PO DAILY 10/03/13 Zolpidem Tartrate [Ambien] 5 mg PO BEDTIME 10/03/13 Carbidopa/Levodopa [Sinemet 25-100 mg Tablet] 1 each PO DAILY 07/16/16 Propranolol HCl [Inderal] 20 mg PO BID 07/16/16 Lurasidone HCl [Latuda] 40 mg PO DAILY 08/15/16 Atorvastatin Calcium [Lipitor] 20 mg PO 20 11/23/16 Budesonide/Formoterol Fumarate [Symbicort 80-4.5 Mcg Inhaler] 2 puff IH BID 09/29 Prazosin HCl [Minipress] 2 mg PO BEDTIME 11/23/16 Ranitidine HCl [Zantac] 150 mg PO BIDAC 11/23/16 Tiotropium [place] [Spiriva] 1 cap IH DAILY 11/23/16 Gabapentin 800 mg PO QID 03/16/17 Amoxicillin 875 mg PO BID #20 tablet 01/18/18 Benzonatate [Tessalon Perles] 100 mg PO TID PRN #30 capsule 01/18/18 Disposition Discussed With: Patient
--- NOTE | 2018-01-18 13:18 | DI ---
EXAM: Two views of the chest. History: Cough. Comparison: Chest radiograph 08/15/2016 Findings: Heart size is normal. No focal consolidation. No appreciable pleural fluid and no pneumo thorax. Calcified granulomas again seen within the thorax. No acute osseous abnormalities. Impression: No acute cardiopulmonary process. Old granulomatous disease. No change compared to the prior study
== END 2018-01-18 14:45 | disposition home or self-care (01) ==
LOC: ED 10:26
DX: J06.9 Acute upper respiratory infection, unspecified (principal); F17.210 Nicotine dependence, cigarettes, uncomplicated
CPT/HCPCS: 36415; 80053; 85025; 87502; 87651; 99283

== ENCOUNTER 2018-02-07 09:40 | Emergency (ER) ==
[2018-02-07 09:53] VITALS: BP 123/86; TEMP 98; BMI 31.1
--- NOTE | 2018-02-07 11:04 | ED.PDOC ---
General ED Provider: Dr. SARATH FOOTE Chief Complaint: Kidney Stone Stated Complaint: uti sign and symptoms possible STD Time Seen by Physician: 10:00 (SEEN AT ALL TIMES WITH NURSE AT ALL TIMES ) Mode of Arrival: Walk-In Information Source: Patient Exam Limitations: No limitations (PMD PERSCRIBED DIFLUCAN 1 DAY AGO ) Primary Care Provider: APRIL MANUEL Nursing and Triage Documentation Reviewed and Agree: No Reviewed sepsis parameters & appropriate labs ordered?: No System Inflammatory Response Syndrome: Not Applicable Sepsis Protocol: For patient's 13 years and over: Temp is 96.8 and below OR 101 and greater Pulse >90 BPM Resp >20/minute Acutely Altered Mental Status Are patient's symptoms suggestive of a new infection, such as: -Pneumonia -Skin, Soft Tissue -Endocarditis -UTI -Bone, Joint Infection -Implantable Device -Acute Abdominal Infection -Wound Infection -Meningitis -Blood Stream Catheter Infection -Unknown System Inflammatory Response Syndrome: Not Applicable Complaint Exam - Complaint/Exam Patient Complains of: Reports: Dysuria Onset/Duration: 2 DAYS Symptoms Are: Still present Timing: Intermittent Initial Severity: Mild Current Severity: Mild Location of Pain: Reports: None Aggravating: Reports: Urination Alleviating: Reports: None Associated Signs and Symptoms: Denies: Diaphoresis, Back pain, Fever, Hematuria , Dysuria, Constipation, Blood in stool, Rectal pain, Appetite change, Nausea, Vomiting, Decreased urine output, Increased urine frequency, Increased thirst, Decreased activity, Lethargy, Abdominal Pain, Bubble bath use, Vaginal bleeding , Vaginal discharge, Genital swelling, Genital blisters, Retained foreign body Ectopic Risk Factors: Reports: None Ovarian Torsion Risk Factors: Reports: None Surgical Obstruction Risk Factors: Reports: None RH Status: Unknown Related Surgical History: Reports: None Review of Systems - Review Of Systems Constitutional: Reports: No symptoms Eyes: Reports: No symptoms Ears, Nose, Mouth, Throat: Reports: No symptoms Respiratory: Reports: No symptoms Cardiac: Reports: No symptoms GI: Reports: No symptoms : Reports: Dysuria Musculoskeletal: Reports: No symptoms Skin: Reports: No symptoms Neurological: Reports: No symptoms Endocrine: Reports: No symptoms Hematologic/Lymphatic: Reports: No symptoms All Other Systems: Reviewed and Negative Past Medical History - Past Medical History Previously Healthy: No Endocrine: Reports: Hypothyroid Cardiovascular: Reports: Hypertension Respiratory: Reports: Asthma, Bronchitis Hematological: Reports: None Gastrointestinal: Reports: None Genitourinary: Reports: None Neuro/Psych: Reports: None Musculoskeletal: Reports: None Cancer: Reports: None Last Menstrual Period: hysterectomy - Surgical History General Surgical History: Reports: Hysterectomy, Orthopedic (Knee replacement, arm sling ), Other (colon surgery ) - Family History Family History: Reports: Unknown - Social History Smoking Status: Current every day smoker, Heavy tobacco smoker Hx Substance Use: No Alcohol Screening: None - Immunizations Influenza Vaccine within 12 Months: No Pneumococcal Vaccine up to Date: No Physical Exam - Physical Exam Appearance: Well-appearing, No pain distress, Well-nourished Eyes: KIARA, EOMI, Conjunctiva clear ENT: Ears normal, Nose normal, Oropharynx normal Respiratory: Airway patent, Breath sounds clear, Breath sounds equal, Respirations nonlabored Cardiovascular: RRR, Pulses normal, No rub, No murmur GI/: Soft, Nontender, No masses, Bowel sounds normal, No Organomegaly Musculoskeletal: Normal strength, ROM intact, No edema, No calf tenderness Skin: Warm, Dry, Normal color Neurological: Sensation intact, Motor intact, Reflexes intact, Cranial nerves intact, Alert, Oriented Psychiatric: Affect appropriate, Mood appropriate Critical Care Note - Critical Care Note Total Time (mins): 0 Course - Course Orders, Labs, Meds: Lab Review 02/07/18 10:00 Urine Color Yellow Urine Clarity Slightly Urine pH 5.5 Ur Specific [place] 1.025 Urine Protein Negative Urine Glucose (UA) Negative Urine Ketones Trace Urine Blood Negative Urine Nitrite Negative Urine Bilirubin Negative Urine Urobilinogen 0.2 Ur Leukocyte Esterase Trace Urine Microscopic WBC 0-2 Ur Squamous Epith Cells 30-50 Urine Bacteria Trace Urine Mucus 1+ Orders Category Date Time Status CHLAMYDIA/GC AMPLIFICATION Stat LAB 02/07/18 10:00 Received UA [URINALYSIS C & S IF INDICATED] Stat LAB 02/07/18 10:00 Completed Vital Signs: Temp Pulse Resp BP Pulse Ox 02/07/18 09:42 98.0 F 66 20 123/86 94 L Departure - Departure Time of Disposition: 11:05 Disposition: HOME SELF-CARE Discharge Problem: Dysuria Instructions: Dysuria (ED) Condition: Good Pt referred to PMD for follow-up: Yes IPMP verified?: No Additional Instructions: Please call your Family Physician as soon as possible to schedule a follow-up appointment.OBTAIN sSTD RESULTS FROM PMD Allergies/Adverse Reactions: Allergies clarithromycin [From Biaxin] Adverse Reaction (Verified 02/07/18 09:54) duloxetine HCl [From Cymbalta] Adverse Reaction (Verified 02/07/18 09:54) venlafaxine [From Effexor] Adverse Reaction (Verified 02/07/18 09:54) Home Medications: Ambulatory Orders Carbamazepine [Tegretol] 500 mg PO BID 10/03/13 Diazepam [Valium] 10 mg PO QID 10/03/13 Levothyroxine Sodium [Synthroid] 125 mcg PO DAILY 10/03/13 Zolpidem Tartrate [Ambien] 5 mg PO BEDTIME 10/03/13 Carbidopa/Levodopa [Sinemet 25-100 mg Tablet] 1 each PO DAILY 07/16/16 Propranolol HCl [Inderal] 20 mg PO BID 07/16/16 Lurasidone HCl [Latuda] 40 mg PO DAILY 08/15/16 Atorvastatin Calcium [Lipitor] 20 mg PO 20 11/23/16 Budesonide/Formoterol Fumarate [Symbicort 80-4.5 Mcg Inhaler] 2 puff IH BID 09/29 Prazosin HCl [Minipress] 2 mg PO BEDTIME 11/23/16 Ranitidine HCl [Zantac] 150 mg PO BIDAC 11/23/16 Tiotropium [place] [Spiriva] 1 cap IH DAILY 11/23/16 Gabapentin 800 mg PO QID 03/16/17
== END 2018-02-07 11:15 | disposition home or self-care (01) ==
LOC: ED 09:40
DX: R30.0 Dysuria (principal); F17.210 Nicotine dependence, cigarettes, uncomplicated
CPT/HCPCS: 36415; 81001; 87800; 99283

== ENCOUNTER 2018-06-22 15:02 | Outpatient (CLI) | END 2018-06-22 15:03 | disposition home or self-care (01) | LOC: LAB 15:02 | PROVIDERS: ATTEND Emergency Medicine | DX: R35.0 Frequency of micturition (principal); F32.1 Major depressive disorder, single episode, moderate; F41.1 Generalized anxiety disorder; E66.9 Obesity, unspecified; E78.5 Hyperlipidemia, unspecified | CPT/HCPCS: 36415; 80053; 80061; 81001; 84443; 85025; 87086; 87186 ==

== ENCOUNTER 2018-09-18 13:43 | Outpatient (CLI) ==
[2018-07-19 16:33] VITALS: BMI 34.2
--- NOTE | 2018-09-18 15:08 | US ---
EXAM: Bilateral carotid artery Doppler History: Dizziness and headache, hypertension. Technique: Multiple sonographic images through the bilateral internal carotid arteries were obtained . Color duplex Doppler was used to interrogate vascular flow. Findings: The right ICA peak systolic velocity is within normal limits measuring 90 cm/sec. The right ICA/cca PSV ratio is normal at 0.80. The right vertebral artery is patent and demonstrates antegrade flow. Gaines scale images demonstrate no significant plaque buildup within the right internal carotid artery. The left ICA peak systolic velocity is within normal limits measuring 80 cm/sec. The left ICA/cca PS V ratio is normal at 0.90. The left vertebral artery is patent and demonstrates antegrade flow. Gra y scale images demonstrate no significant plaque buildup within the left internal carotid artery Impression: No significant hemodynamic stenosis of the bilateral internal carotid arteries
== END 2018-09-18 13:44 | disposition home or self-care (01) ==
LOC: RAD 13:43
PROVIDERS: ATTEND Family Medicine
DX: I70.90 Unspecified atherosclerosis (principal)

== ENCOUNTER 2018-09-26 10:10 | Outpatient (CLI) ==
[2018-07-19 16:33] VITALS: BMI 34.2
== END 2018-09-26 10:11 | disposition home or self-care (01) ==
LOC: RAD 10:10
PROVIDERS: ATTEND Family Medicine
DX: Z12.31 Encounter for screening mammogram for malignant neoplasm of breast (principal)

== ENCOUNTER 2018-11-18 10:26 | Emergency (ER) ==
[2018-11-18 10:26] VITALS: BMI 34.4
[2018-11-18 10:34] VITALS: BP 110/76; TEMP 98.4
--- NOTE | 2018-11-18 10:44 | ED.PDOC ---
General ED Provider: Dr. ELIZABETH WILLSON Chief Complaint: Sore Throat Stated Complaint: Sore Throat. Onset Monday. Hx around Grandchildren who have been treated for Strep Throat. Denies rash, fever or chills. Time Seen by Physician: 10:35 Mode of Arrival: Walk-In Information Source: Patient Exam Limitations: No limitations Primary Care Provider: VENKATA MONSON Nursing and Triage Documentation Reviewed and Agree: Yes Does patient meet sepsis criteria?: No System Inflammatory Response Syndrome: Not Applicable Sepsis Protocol: For patient's 13 years and over: Temp is 96.8 and below OR 101 and greater Pulse >90 BPM Resp >20/minute Acutely Altered Mental Status Are patient's symptoms suggestive of a new infection, such as: -Pneumonia -Skin, Soft Tissue -Endocarditis -UTI -Bone, Joint Infection -Implantable Device -Acute Abdominal Infection -Wound Infection -Meningitis -Blood Stream Catheter Infection -Unknown EENT Complaint Exam - Throat Complaint/Exam Onset/Duration: 2 days Symptoms Are: Still present Timimg: Constant Initial Severity: Mild Current Severity: Moderate Aggravating: Reports: Eating Alleviating: Reports: None Associated Signs and Symptoms: Reports: Dysphagia, Hoarseness. Denies: Fever, Drooling, Foreign body sensation, Chills, Cough, Wheezing, Sinus discomfort, Nasal congestion, Difficulty breathing, Lethargy, Irritability, Decreased activity, Vomiting, Diarrhea, Decreased hearing, Ear drainage Uvula Midline: Yes Maria Dolores-tonsillar Fluctuence: No Scarlatinaform Rash Present: No Lesions: Present: Pharynx. Absent: Gums, Tongue, Buccal Mucosa Exanthem: Absent: Lip, Gums, Tongue, Buccal Mucosa, Pharynx Vesicles: Absent: Lip, Gums, Tongue, Buccal Mucosa, Pharynx Stridor Present: No Sinus Tenderness Present: No Tonsillar Hypertrophy Present: No Tonsillar Exudate Present: Yes Maria Dolores-tonsillar Swelling Present: No Adenopathy Present: Yes Splenomegaly Present: No Differential Diagnoses: Pharyngitis, Tonsillitis Review of Systems - Review Of Systems Constitutional: Reports: No symptoms Eyes: Reports: No symptoms Ears, Nose, Mouth, Throat: Reports: Throat pain Respiratory: Reports: No symptoms Cardiac: Reports: No symptoms GI: Reports: No symptoms : Reports: No symptoms Musculoskeletal: Reports: No symptoms Skin: Reports: No symptoms Neurological: Reports: No symptoms Endocrine: Reports: No symptoms Hematologic/Lymphatic: Reports: No symptoms All Other Systems: Reviewed and Negative Past Medical History - Past Medical History Previously Healthy: No Endocrine: Reports: Hypothyroid Cardiovascular: Reports: Hypertension Respiratory: Reports: Asthma, Bronchitis Hematological: Reports: None Gastrointestinal: Reports: None Genitourinary: Reports: None Neuro/Psych: Reports: None Musculoskeletal: Reports: None Cancer: Reports: None Last Menstrual Period: hysterectomy - Surgical History General Surgical History: Reports: Hysterectomy, Orthopedic (Knee replacement, arm sling ), Other (colon surgery ) - Family History Family History: Reports: Unknown - Social History Smoking Status: Current every day smoker, Heavy tobacco smoker Hx Substance Use: No Alcohol Screening: None - Immunizations Tetanus Shot up to Date: No Influenza Vaccine within 12 Months: No Pneumococcal Vaccine up to Date: No Physical Exam - Physical Exam Appearance: Ill-appearing, Obese Ill-appearing: Mild Pain Distress: None Eyes: KIARA, EOMI, Conjunctiva clear ENT: Ears normal, Nose normal, Erythema (oral pharynx), Exudate Neck: Supple Respiratory: Airway patent Cardiovascular: RRR, Pulses normal, No rub, No murmur GI/: Soft, Nontender, No masses, Bowel sounds normal, No Organomegaly Musculoskeletal: Normal strength, ROM intact, No edema, No calf tenderness, Limited ROM (Rt Forearm -in splint/elbow fracture) Skin: Warm, Dry, Normal color Neurological: Sensation intact, Motor intact, Reflexes intact, Cranial nerves intact, Alert, Oriented Psychiatric: Affect appropriate, Mood appropriate Critical Care Note - Critical Care Note Total Time (mins): 0 Course - Course Vital Signs: Temp Pulse Resp BP Pulse Ox 11/18/18 10:26 98.4 F 91 H 20 110/76 93 L Departure - Departure Time of Disposition: 11:10 Disposition: HOME SELF-CARE Discharge Problem: Pharyngitis Instructions: Pharyngitis (ED) Condition: Good Pt referred to PMD for follow-up: Yes (1 wk) IPMP verified?: No Additional Instructions: Risnse mouth with warm salt water Take Tylenol for pain Take meds as directed Prescriptions: Doxycycline Hyclate 100 mg PO BID #14 tablet Doxycycline Hyclate 100 mg PO BID 10 Days #20 tablet Allergies/Adverse Reactions: Allergies amoxicillin Adverse Reaction (Verified 11/18/18 10:28) clarithromycin [From Biaxin] Adverse Reaction (Verified 11/18/18 10:28) duloxetine HCl [From Cymbalta] Adverse Reaction (Verified 11/18/18 10:28) venlafaxine [From Effexor] Adverse Reaction (Verified 11/18/18 10:28) Home Medications: Ambulatory Orders Levothyroxine Sodium [Synthroid] 125 mcg PO DAILY 10/03/13 Carbidopa/Levodopa [Sinemet 25-100 mg Tablet] 1 each PO DAILY 07/16/16 Propranolol HCl [Inderal] 20 mg PO BID 07/16/16 Atorvastatin Calcium [Lipitor] 20 mg PO 20 11/23/16 Budesonide/Formoterol Fumarate [Symbicort 80-4.5 Mcg Inhaler] 2 puff IH BID 09/29 Prazosin HCl [Minipress] 2 mg PO BEDTIME 11/23/16 Ranitidine HCl [Zantac] 150 mg PO BIDAC 11/23/16 Gabapentin 800 mg PO QID 03/16/17 Carbamazepine [Tegretol] 300 mg PO BID 06/22/18 Diazepam 5 mg PO QID 06/22/18 Escitalopram Oxalate [Lexapro] 20 mg PO DAILY 06/22/18 Hydroxyzine HCl 10 mg PO 2 at bedtime 06/22/18 Doxycycline Hyclate 100 mg PO BID 10 Days #20 tablet 11/18/18 Disposition Discussed With: Patient, Family
== END 2018-11-18 11:30 | disposition home or self-care (01) ==
LOC: ED 10:26
DX: J02.9 Acute pharyngitis, unspecified (principal); F17.210 Nicotine dependence, cigarettes, uncomplicated
CPT/HCPCS: 87651; 99283

== ENCOUNTER 2018-12-22 11:32 | Emergency (ER) ==
[2018-12-22 11:39] VITALS: BP 113/77; TEMP 97.7; BMI 34.7
--- NOTE | 2018-12-22 12:24 | ED.PDOC ---
General ED Provider: Dr. ELIZABETH WILLSON Chief Complaint: Elbow Pain/Injury Stated Complaint: Lt Elbow pain. States she fell this past Thusday landing on her Lt Elbow resulting in pain. Stated she injured her Lt elbow in October, was evaluated in the ER on 10/19/2018 and diagnosed with as a fracture of her lt elbow. State she did not obtain f/u apt with orthopedics for 10 days and was advised then was told it had been too long since the injury for surgical treatment. Review of xray report showed possible Medial epicondyle fracture. NO obvious deformity. Taking Ibuprofen for pain as she is out of the Rx meds from [facility] Time Seen by Physician: 12:10 Mode of Arrival: Walk-In Information Source: Patient Exam Limitations: Clinical condition Primary Care Provider: VENKATA MONSON Nursing and Triage Documentation Reviewed and Agree: Yes Does patient meet sepsis criteria?: No System Inflammatory Response Syndrome: Not Applicable Sepsis Protocol: For patient's 13 years and over: Temp is 96.8 and below OR 101 and greater Pulse >90 BPM Resp >20/minute Acutely Altered Mental Status Are patient's symptoms suggestive of a new infection, such as: -Pneumonia -Skin, Soft Tissue -Endocarditis -UTI -Bone, Joint Infection -Implantable Device -Acute Abdominal Infection -Wound Infection -Meningitis -Blood Stream Catheter Infection -Unknown Musculoskeletal Complaint Exam - Elbow Pain Complaint/Exam Mechanism of Injury: Reports: Trauma Onset/Duration: 3 days since recent injury Symptoms Are: Still present Onset of Pain: Reports: Immediate Initial Severity: Moderate Current Severity: Mild Location: Reports: Discrete Character: Reports: Aching Alleviating: Reports: Rest Aggravating: Reports: Movement, Twisting, Pulling Associated Signs and Symptoms: Reports: Swelling Related History: Reports: Similar episode Related Surgical History: Reports: None Elbow Findings: Present: Swelling, Rotation. Absent: Ecchymosis, Abnormal contour, Ligamentous instability, Laceration, Erythema, Warmth Tenderness: Present: Lateral Condyle Limited Range of Motion: Present: Extension, Pronation, Supination Differential Diagnoses: Closed Fracture, Sprain Review of Systems - Review Of Systems Constitutional: Reports: No symptoms Eyes: Reports: No symptoms Ears, Nose, Mouth, Throat: Reports: No symptoms Respiratory: Reports: No symptoms Cardiac: Reports: No symptoms GI: Reports: No symptoms : Reports: No symptoms Musculoskeletal: Reports: No symptoms Skin: Reports: No symptoms Neurological: Reports: No symptoms Endocrine: Reports: No symptoms Hematologic/Lymphatic: Reports: No symptoms All Other Systems: Reviewed and Negative Past Medical History - Past Medical History Previously Healthy: No Endocrine: Reports: Hypothyroid Cardiovascular: Reports: Hypertension Respiratory: Reports: Asthma, Bronchitis Hematological: Reports: None Gastrointestinal: Reports: None Genitourinary: Reports: None Neuro/Psych: Reports: None Musculoskeletal: Reports: None Cancer: Reports: None Last Menstrual Period: n/a - Surgical History General Surgical History: Reports: Hysterectomy, Orthopedic (Knee replacement, arm sling ), Other (colon surgery ) - Family History Family History: Reports: Unknown - Social History Smoking Status: Current every day smoker, Heavy tobacco smoker Hx Substance Use: Yes (recovering addict (cocaine)) Alcohol Screening: None - Immunizations Influenza Vaccine within 12 Months: No Pneumococcal Vaccine up to Date: No Physical Exam - Physical Exam Appearance: Well-appearing, No pain distress, Well-nourished, Obese Ill-appearing: Mild Eyes: KIARA, EOMI, Conjunctiva clear ENT: Ears normal, Nose normal, Oropharynx normal Respiratory: Airway patent, Breath sounds clear, Breath sounds equal, Respirations nonlabored Cardiovascular: RRR, Pulses normal, No rub, No murmur GI/: Soft, Nontender, No masses, Bowel sounds normal, No Organomegaly Musculoskeletal: ROM intact, No edema, No calf tenderness, Limited ROM, Limited strength, Edema Skin: Warm, Dry, Normal color Neurological: Sensation intact, Motor intact, Reflexes intact, Cranial nerves intact, Alert, Oriented Psychiatric: Affect appropriate, Mood appropriate Critical Care Note - Critical Care Note Total Time (mins): 0 Course - Course Hematology/Chemistry: 12/22/18 12:45 12/22/18 12:45 Orders, Labs, Meds: Lab Review 12/22/18 12/22/18 12/22/18 12:45 12:45 13:00 WBC 8.28 RBC 4.49 Hgb 13.8 Hct 42.0 MCV 93.5 MCH 30.7 MCHC 32.9 RDW Coeff of Bel 14.0 Plt Count 229 Immature Gran % (Auto) 0.2 Neut % (Auto) 46.3 Lymph % (Auto) 41.4 [place] % (Auto) 8.7 Eos % (Auto) 2.7 Baso % (Auto) 0.7 Immature Gran # (Auto) 0.0 Neut # (Auto) 3.8 Lymph # (Auto) 3.4 [place] # (Auto) 0.7 Eos # (Auto) 0.2 Baso # (Auto) 0.1 Sodium 141.2 Potassium 4.75 Chloride 102.4 Carbon Dioxide 32.0 H Anion Gap 11.55 BUN 23.4 H Creatinine 0.73 Estimated GFR (MDRD) 84.00 BUN/Creatinine Ratio 32.05 Glucose 97.8 Calcium 10.21 H Urine Color Urine Clarity Urine pH Ur Specific [place] Urine Protein Urine Glucose (UA) Urine Ketones Urine Blood Urine Nitrite Urine Bilirubin Urine Urobilinogen Ur Leukocyte Esterase Urine Opiates Screen Negative Ur Oxycodone Screen Negative Urine Methadone Screen Negative Ur Propoxyphene Screen Negative Ur Barbiturates Screen Negative U Tricyclic Antidepress Negative Ur Phencyclidine Scrn Negative Ur Amphetamine Screen Negative U Methamphetamines Scrn Negative U Benzodiazepines Scrn Positive Urine Cocaine Screen Negative U Cannabinoids Screen Negative 12/22/18 13:00 WBC RBC Hgb Hct MCV MCH MCHC RDW Coeff of [place] Plt Count Immature Gran % (Auto) Neut % (Auto) Lymph % (Auto) [place] % (Auto) Eos % (Auto) Baso % (Auto) Immature Gran # (Auto) Neut # (Auto) Lymph # (Auto) [place] # (Auto) Eos # (Auto) Baso # (Auto) Sodium Potassium Chloride Carbon Dioxide Anion Gap BUN Creatinine Estimated GFR (MDRD) BUN/Creatinine Ratio Glucose Calcium Urine Color Yellow Urine Clarity Clear Urine pH 5.0 Ur Specific [place] >=1.030 Urine Protein Negative Urine Glucose (UA) Negative Urine Ketones Negative Urine Blood Negative Urine Nitrite Negative Urine Bilirubin Negative Urine Urobilinogen 0.2 Ur Leukocyte Esterase Negative Urine Opiates Screen Ur Oxycodone Screen Urine Methadone Screen Ur Propoxyphene Screen Ur Barbiturates Screen U Tricyclic Antidepress Ur Phencyclidine Scrn Ur Amphetamine Screen U Methamphetamines Scrn U Benzodiazepines Scrn Urine Cocaine Screen U Cannabinoids Screen Orders Category Date Time Status SPLINT [TREATMENT ORDER:NURSING] ONCE CARE 12/22/18 13:16 Active BASIC METABOLIC PANEL Stat LAB 12/22/18 12:45 Completed CBC W/ AUTO DIFF Stat LAB 12/22/18 12:45 Completed DRUG SCREEN, URINE, RAPID Stat LAB 12/22/18 13:00 Completed URINALYSIS C & S IF INDICATED Stat LAB 12/22/18 13:[address] ELBOW LEFT WITHOUT CONTRAST Stat RADS 12/22/18 12:23 Completed Vital Signs: Temp Pulse Resp BP Pulse Ox 12/22/18 11:32 97.7 F 98 H 20 113/77 98 Departure - Departure Time of Disposition: 13:50 Disposition: HOME SELF-CARE Discharge Problem: Fracture of radial neck, left, closed Instructions: Elbow Fracture (ED) Condition: Good Pt referred to PMD for follow-up: Yes (and follow up with ortho) IPMP verified?: No Additional Instructions: OCL Splint Sling Toradol for pain as needed See Ortho this week as previously planned Prescriptions: Hydrocodone/Acetaminophen [[place] 5-325 Tablet] 1 tab PO 2-3XD #15 tablet Allergies/Adverse Reactions: Allergies amoxicillin Adverse Reaction (Verified 12/22/18 11:39) clarithromycin [From Biaxin] Adverse Reaction (Verified 12/22/18 11:39) duloxetine HCl [From Cymbalta] Adverse Reaction (Verified 12/22/18 11:39) venlafaxine [From Effexor] Adverse Reaction (Verified 12/22/18 11:39) Home Medications: Ambulatory Orders Levothyroxine Sodium [Synthroid] 125 mcg PO DAILY 10/03/13 Carbidopa/Levodopa [Sinemet 25-100 mg Tablet] 1 each PO DAILY 07/16/16 Propranolol HCl [Inderal] 20 mg PO BID 07/16/16 Atorvastatin Calcium [Lipitor] 20 mg PO 20 11/23/16 Budesonide/Formoterol Fumarate [Symbicort 80-4.5 Mcg Inhaler] 2 puff IH BID 09/29 Prazosin HCl [Minipress] 2 mg PO BEDTIME 11/23/16 Ranitidine HCl [Zantac] 150 mg PO BIDAC 11/23/16 Gabapentin 800 mg PO QID 03/16/17 Carbamazepine [Tegretol] 300 mg PO BID 06/22/18 Diazepam 5 mg PO QID 06/22/18 Escitalopram Oxalate [Lexapro] 20 mg PO DAILY 06/22/18 Hydroxyzine HCl 10 mg PO 2 at bedtime 06/22/18 Doxycycline Hyclate 100 mg PO BID 10 Days #20 tablet 11/18/18 Hydrocodone/Acetaminophen [[place] 5-325 Tablet] 1 tab PO 2-3XD #15 tablet Disposition Discussed With: Patient, Family
--- NOTE | 2018-12-22 12:53 | CT ---
EXAM: CT left elbow without contrast HISTORY: Fall with pain. COMPARISON: Left elbow x-rays 10/19/2018 TECHNIQUE: Serial axial images of the left elbow were obtained without contrast. These were viewed in multiple planes. FINDINGS: There is a nondisplaced fracture in the radial neck. There is degenerative change and oste ophyte formation of the olecranon. The small calcifications adjacent to the medial epicondyle is unc hanged with no definitive donor site identified. The remaining osseous structures are unremarkable. There is no visualized effusion. IMPRESSION: 1. Fracture of the radial neck. 2. Small calcifications adjacent medial condyle. No donor site identified. 3. Soft tissues are unremarkable with no visualized effusion.
== END 2018-12-22 14:26 | disposition home or self-care (01) ==
LOC: ED 11:32
DX: S52.132A Displaced fracture of neck of left radius, initial encounter for closed fracture (principal); W19.XXXA Unspecified fall, initial encounter; F17.210 Nicotine dependence, cigarettes, uncomplicated
CPT/HCPCS: 36415; 80048; 80306; 81001; 85025; 99283

== ENCOUNTER 2019-01-02 12:44 | Inpatient (IN) ==
[2019-01-02] MEDS ORDERED: DUONEB NEB STA (12:49)
--- NOTE | 2019-01-02 14:03 | CT ---
EXAM: CT of the chest without contrast History: Cough. Comparison: Chest radiograph 07/19/2018, chest CT 12/17/2017 Technique: Multiplanar CT images through the thorax were obtained without the administration of IV c ontrast Findings: Heart size is borderline enlarged. No change in the small pericardial effusion. No thorac ic aortic aneurysm. No pathologically enlarged thoracic lymph nodes. Calcified granulomas again see n within the thorax. No consolidation. No pleural fluid and no pneumothorax. No change in the chronometer tester joleen subsegmental atelectasis within the right middle lobe and lingula. Mild bilateral ground-glass l shaan infiltrates. No suspicious lung masses or lung nodules. Within the visualized upper abdomen, no acute findings. The no acute osseous abnormalities. Impression: 1. Mild bilateral pneumonitis. 2. Borderline cardiomegaly and small pericardial effusion. 3. Old granulomatous disease
--- NOTE | 2019-01-02 14:15 | ED.PDOC ---
General ED Provider: Dr. SARATH FOOTE Chief Complaint: Respiratory Complaint Stated Complaint: cough, flu like symptoms , short of air Time Seen by Physician: 12:48 (seen with nursing staff ) Mode of Arrival: Walk-In Information Source: Patient Exam Limitations: No limitations Primary Care Provider: VENKATA MONSON Nursing and Triage Documentation Reviewed and Agree: Yes Does patient meet sepsis criteria?: No If yes, has appropriate treatment been initiated?: No System Inflammatory Response Syndrome: Not Applicable Sepsis Protocol: For patient's 13 years and over: Temp is 96.8 and below OR 101 and greater Pulse >90 BPM Resp >20/minute Acutely Altered Mental Status Are patient's symptoms suggestive of a new infection, such as: -Pneumonia -Skin, Soft Tissue -Endocarditis -UTI -Bone, Joint Infection -Implantable Device -Acute Abdominal Infection -Wound Infection -Meningitis -Blood Stream Catheter Infection -Unknown Respiratory Complaint Exam - Respiratory Complaint/Exam Onset/Duration: 1 week worse today Symptoms Are: Still present Timing: Intermittent Initial Severity: Moderate Current Severity: Mild Location: Nose, Throat, Chest Character: Reports: Non-productive cough, Dry cough Aggravating: Reports: None Alleviating: Reports: Spontaneous resolution Associated Signs and Symptoms: Reports: URI, Nasal congestion. Denies: Rapid breathing, Dyspnea, Fever, Chills, Chest pain, Pleuritic chest pain, Wheezing, Hemoptysis, Dizziness, Calf pain, Calf swelling, Edema, Hoarseness, Sinus discomfort, Vomiting, Sore throat, Weight loss, Decreased oral intake, Increased thirst, Increased appetite, Increased urination Related History: Reports: Similar episode History of Healthcare-Acquired Pneumonia: No Related Surgical History: Reports: None Pulmonary Embolism Risk Factors: None Cardiac Risk Factors: Reports: Hypertension Pseudomonas Risk Factors: Reports: Chronic Lung Disease Tuberculosis Risk Factors: Reports: None Status Asthmaticus Risk Factors: Reports: None Home Oxygen Use: No Home Peak Flow: Recent personal best Recent Echo/LV Function: No Current Antibiotic Use: No Current Asthma Medication Use: No Respiratory Distress: None Inadequate Respiratory Effort: No Dysphagia Present: No Stridor Present: No JVD Present: No Accessory Muscle Use: No Retractions: Not Present Review of Systems - Review Of Systems Constitutional: Reports: Chills, Fever, Malaise, Loss of appetite Eyes: Reports: No symptoms Ears, Nose, Mouth, Throat: Reports: No symptoms Respiratory: Reports: Cough, Short of air Cardiac: Reports: No symptoms GI: Reports: No symptoms : Reports: No symptoms Musculoskeletal: Reports: No symptoms Skin: Reports: No symptoms Neurological: Reports: No symptoms Endocrine: Reports: No symptoms Hematologic/Lymphatic: Reports: No symptoms All Other Systems: Reviewed and Negative Past Medical History - Past Medical History Previously Healthy: No Endocrine: Reports: Hypothyroid Cardiovascular: Reports: Hypertension Respiratory: Reports: Asthma, Bronchitis Hematological: Reports: None Gastrointestinal: Reports: None Genitourinary: Reports: None Neuro/Psych: Reports: None Musculoskeletal: Reports: None Cancer: Reports: None Last Menstrual Period: none - Surgical History General Surgical History: Reports: Hysterectomy, Orthopedic (Knee replacement, arm sling ), Other (colon surgery ) - Family History Family History: Reports: Unknown - Social History Smoking Status: Current every day smoker, Heavy tobacco smoker Hx Substance Use: Yes (recovering addict (cocaine)) Alcohol Screening: None - Immunizations Influenza Vaccine within 12 Months: No Pneumococcal Vaccine up to Date: No Physical Exam - Physical Exam Appearance: Ill-appearing Ill-appearing: Mild Pain Distress: Mild Eyes: KIARA, EOMI, Conjunctiva clear ENT: Ears normal, Nose normal, Oropharynx normal Respiratory: Breath sounds equal, Breath sounds diminished, Respirations nonlabored, Rhonchi Cardiovascular: RRR, Pulses normal, No rub, No murmur GI/: Soft, Nontender, No masses, Bowel sounds normal, No Organomegaly Musculoskeletal: Normal strength, ROM intact, No edema, No calf tenderness Skin: Warm, Dry, Normal color Neurological: Sensation intact, Motor intact, Reflexes intact, Cranial nerves intact, Alert, Oriented Psychiatric: Affect appropriate, Mood appropriate Interpretation - Radiology Interpretation Radiology Interpretation By: Radiologist Radiology Results: Positive (bilateral pneumonitis) Re-Evaluation - Re-Evaluation Time of Re-Evaluation: 14:00 Status: Improved Vital Signs Stable: Yes Pain Level: 0 Appearance: NAD Lungs: Clear Skin: Warm and Dry Neuro: Alert and Oriented X3 CV: RRR Additional Comments: no resp distress while in E.D. Physician Notification - Case Discussed Physician Notified: PMD Time of Notification: 14:18 Admit To: Inpatient Critical Care Note - Critical Care Note Total Time (mins): 0 Course - Course Hematology/Chemistry: 01/02/19 13:10 01/02/19 13:10 Orders, Labs, Meds: Lab Review 01/02/19 01/02/19 01/02/19 12:50 13:10 13:10 WBC 8.10 RBC 4.11 L Hgb 12.6 Hct 37.7 MCV 91.7 MCH 30.7 MCHC 33.4 RDW Coeff of Bel 14.1 Plt Count 246 Immature Gran % (Auto) 0.2 Neut % (Auto) 40.0 Lymph % (Auto) 50.[address] [place] % (Auto) 6.8 Eos % (Auto) 2.3 Baso % (Auto) 0.5 Immature Gran # (Auto) 0.0 Neut # (Auto) 3.2 Lymph # (Auto) 4.[address] [place] # (Auto) 0.6 Eos # (Auto) 0.2 Baso # (Auto) 0.0 Puncture Site Lbrach O2 Saturation 89.0 L ABG pH 7.353 ABG pCO2 42.7 ABG pO2 59.0 L* ABG HCO3 23.8 ABG Total CO2 25 ABG Base Excess -2 FiO2 % 21.0 Sodium 138.6 Potassium 4.16 Chloride 103.4 Carbon Dioxide 24.6 Anion Gap 14.76 BUN 18.7 H Creatinine 0.70 Estimated GFR (MDRD) 89.00 BUN/Creatinine Ratio 26.71 Glucose 104.9 Lactic Acid Calcium 9.02 Total Bilirubin 0.21 AST 15.5 ALT 11.4 Alkaline Phosphatase 67.7 Total Protein 7.59 Albumin 4.25 Globulin 3.34 Albumin/Globulin Ratio 1.27 Procalcitonin Influ A Molecular Assay Influ B Molecular Assay 01/02/19 01/02/19 01/02/19 13:10 13:10 13:10 WBC RBC Hgb Hct MCV MCH MCHC RDW Coeff of [place] Plt Count Immature Gran % (Auto) Neut % (Auto) Lymph % (Auto) [place] % (Auto) Eos % (Auto) Baso % (Auto) Immature Gran # (Auto) Neut # (Auto) Lymph # (Auto) [place] # (Auto) Eos # (Auto) Baso # (Auto) Puncture Site O2 Saturation ABG pH ABG pCO2 ABG pO2 ABG HCO3 ABG Total CO2 ABG Base Excess FiO2 % Sodium Potassium Chloride Carbon Dioxide Anion Gap BUN Creatinine Estimated GFR (MDRD) BUN/Creatinine Ratio Glucose Lactic Acid 1.70 Calcium Total Bilirubin AST ALT Alkaline Phosphatase Total Protein Albumin Globulin Albumin/Globulin Ratio Procalcitonin < 0.05 Influ A Molecular Assay Negative by naat Influ B Molecular Assay Negative by naat Orders Category Date Time Status ABG DRAW REQUEST Stat CARDIO 01/02/19 12:50 Completed NEBULIZER TREATMENT Stat CARDIO 01/02/19 12:49 Completed ABG Stat LAB 01/02/19 12:50 Completed BLOOD CULTURE (ED ONLY) Stat LAB 01/02/19 13:10 Received CBC W/ AUTO DIFF Stat LAB 01/02/19 13:10 Completed COMPREHENSIVE METABOLIC PANEL Stat LAB 01/02/19 13:10 Completed FLU A/B MOLECULAR Stat LAB 01/02/19 13:10 Completed LACTIC ACID Stat LAB 01/02/19 13:10 Completed MOLECULAR GROUP A STREP Stat LAB 01/02/19 13:10 Completed PROCALCITONIN Stat LAB 01/02/19 13:10 Completed Ipratropium/Albuterol Neb [Duoneb] MEDS 01/02/19 12:49 Discontinued 1 vial NEB ONCE STA CT CHEST W/O CONTRAST Stat RADS 01/02/19 12:50 Completed Medications Discontinued Medications Generic Name Dose Route Start Last Admin Trade Name Freq PRN Reason Stop Dose Admin Albuterol/Ipratropium 1 vial 01/02/19 12:49 01/02/19 13:13 Duoneb NEB 01/02/19 12:50 1 vial ONCE STA Administration Vital Signs: Temp Pulse Resp BP Pulse Ox 01/02/19 12:45 98.7 F 56 L 20 100/67 90 L Departure - Departure Time of Disposition: 14:17 Disposition: HOME SELF-CARE Discharge Problem: Pneumonia Qualifiers: Pneumonia type: due to unspecified organism Laterality: bilateral Instructions: Bacterial Pneumonia (ED) Condition: Good Pt referred to PMD for follow-up: Yes IPMP verified?: No Allergies/Adverse Reactions: Allergies amoxicillin Adverse Reaction (Verified 01/02/19 12:50) clarithromycin [From Biaxin] Adverse Reaction (Verified 01/02/19 12:50) duloxetine HCl [From Cymbalta] Adverse Reaction (Verified 01/02/19 12:50) venlafaxine [From Effexor] Adverse Reaction (Verified 01/02/19 12:50) Home Medications: Ambulatory Orders Levothyroxine Sodium [Synthroid] 125 mcg PO DAILY 10/03/13 Carbidopa/Levodopa [Sinemet 25-100 mg Tablet] 1 each PO DAILY 07/16/16 Propranolol HCl [Inderal] 20 mg PO BID 07/16/16 Atorvastatin Calcium [Lipitor] 20 mg PO DAILY 11/23/16 Budesonide/Formoterol Fumarate [Symbicort 80-4.5 Mcg Inhaler] 2 puff IH BID 09/29 Prazosin HCl [Minipress] 2 mg PO BEDTIME 11/23/16 Ranitidine HCl [Zantac] 150 mg PO BIDAC 11/23/16 Gabapentin 800 mg PO QID 03/16/17 Carbamazepine [Tegretol] 300 mg PO BID 06/22/18 Diazepam 10 mg PO QID 06/22/18 Escitalopram Oxalate [Lexapro] 20 mg PO DAILY 06/22/18 Hydroxyzine HCl 10 mg PO 2 at bedtime 06/22/18 Iloperidone [Fanapt] 6 mg PO BID 01/02/19 Tiotropium [place] [Spiriva] 18 mcg IH DAILY 01/02/19 Umeclidinium [place] [Incruse Ellipta] 62.5 mcg IH DAILY 01/02/19 Disposition Discussed With: Patient
[2019-01-02] MEDS ORDERED: NON-FORMULARY MEDICATION (Hydroxyzine Hcl [Hydroxyzine Hcl] 10 MG) PO SCH (14:30)
[2019-01-02] MEDS ORDERED: ROCEPHIN 1 GM in SODIUM CHLORIDE 50 ML IV STA (14:31)
[2019-01-02] MEDS ORDERED: ROCEPHIN ONE (14:46)
[2019-01-02] MEDS: SODIUM CHLORIDE 1,000 ML IV SCH (15:27)
[2019-01-02] MEDS: LEVAQUIN 500 MG in PREMIX 100 ML D5W 1 BAG IV SCH (15:46)
[2019-01-02] MEDS: ROCEPHIN 1 GM in SODIUM CHLORIDE 50 ML IV SCH (15:51)
[2019-01-02 15:58] VITALS: BMI 35.1
[2019-01-02] MEDS: VALIUM PO SCH ×2 (16:40→20:19)
[2019-01-02] MEDS: NEURONTIN PO SCH ×4 (16:40→20:19)
[2019-01-02] MEDS ORDERED: NON-FORMULARY MEDICATION (Gabapentin [Gabapentin] 800 MG) PO SCH (17:00)
[2019-01-02] MEDS: DUONEB NEB SCH ×2 (18:16→23:25)
[2019-01-02] MEDS: ILOPERIDONE 6 MG PO SCH (20:18)
[2019-01-02] MEDS: TEGRETOL PO SCH (20:19)
[2019-01-02] MEDS: MINIPRESS PO SCH (20:19)
[2019-01-02] MEDS: INDERAL PO SCH (20:19)
[2019-01-02] MEDS ORDERED: PRAZOSIN HCL 2 MG PO SCH (21:00)
[2019-01-02] MEDS: AMBIEN PO SCH (22:11)
[2019-01-02] MEDS: DESYREL PO SCH (22:11)
[2019-01-03] MEDS: SODIUM CHLORIDE 1,000 ML IV SCH ×2 (04:58→20:13)
[2019-01-03] MEDS: DUONEB NEB SCH ×4 (05:32→22:22)
[2019-01-03] MEDS: SYNTHROID PO SCH ×2 (05:40→05:41)
[2019-01-03] MEDS: INDERAL PO SCH ×2 (08:29→20:27)
[2019-01-03] MEDS: LEVAQUIN 500 MG in PREMIX 100 ML D5W 1 BAG IV SCH (08:29)
[2019-01-03] MEDS: VALIUM PO SCH ×4 (08:29→20:27)
[2019-01-03] MEDS: ZESTRIL PO SCH (08:30)
[2019-01-03] MEDS: TEGRETOL PO SCH ×2 (08:30→20:35)
[2019-01-03] MEDS: LIPITOR PO SCH (08:30)
[2019-01-03] MEDS: NEURONTIN PO SCH ×8 (08:30→20:27)
[2019-01-03] MEDS: NON-FORMULARY MEDICATION (Umeclidinium Bromide [Incruse Ellipta] 62.5 MCG) IH SCH (08:35)
[2019-01-03] MEDS: ILOPERIDONE 6 MG PO SCH ×2 (08:38→20:26)
[2019-01-03] MEDS ORDERED: NON-FORMULARY MEDICATION (Lisinopril [Lisinopril] 20 MG) PO SCH (09:00)
[2019-01-03] MEDS ORDERED: NON-FORMULARY MEDICATION (Levothyroxine Sodium [Synthroid] 125 MCG) PO SCH (09:00)
[2019-01-03] MEDS: ROCEPHIN 1 GM in SODIUM CHLORIDE 50 ML IV SCH (10:23)
[2019-01-03] MEDS ORDERED: TYLENOL PO STA (11:10)
[2019-01-03] MEDS ORDERED: SINEMET 25-100 PO SCH (17:00)
[2019-01-03] MEDS: MINIPRESS PO SCH (20:26)
[2019-01-03] MEDS: DESYREL PO SCH (20:26)
[2019-01-03] MEDS: AMBIEN PO SCH (20:27)
[2019-01-03] MEDS ORDERED: NICODERM 21 MG TD SCH (21:00)
[2019-01-04] MEDS: DUONEB NEB SCH ×2 (05:01→12:31)
[2019-01-04] MEDS: SYNTHROID PO SCH ×2 (06:00→06:01)
[2019-01-04] MEDS: ROCEPHIN 1 GM in SODIUM CHLORIDE 50 ML IV SCH (09:05)
[2019-01-04] MEDS: VALIUM PO SCH ×2 (09:06→12:45)
[2019-01-04] MEDS: INDERAL PO SCH (09:06)
[2019-01-04] MEDS: TEGRETOL PO SCH (09:06)
[2019-01-04] MEDS: NEURONTIN PO SCH ×4 (09:06→12:46)
[2019-01-04] MEDS: NON-FORMULARY MEDICATION (Umeclidinium Bromide [Incruse Ellipta] 62.5 MCG) IH SCH (09:07)
[2019-01-04] MEDS: LIPITOR PO SCH (09:07)
[2019-01-04] MEDS: ZESTRIL PO SCH (09:07)
[2019-01-04] MEDS: ILOPERIDONE 6 MG PO SCH (09:08)
[2019-01-04] MEDS: LEVAQUIN 500 MG in PREMIX 100 ML D5W 1 BAG IV SCH (09:51)
[2019-01-04] MEDS: SODIUM CHLORIDE 1,000 ML IV SCH (09:52)
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
[2019-01-04 14:22] VITALS: BP 106/72; TEMP 98
--- NOTE | 2019-01-07 11:15 | PN ---
DATE OF SERVICE: 01/03/19 SUBJECTIVE: The patient is alert and has movement of all extremities without any pain in both legs on standing or palpation. She is alert and oriented and responsive. Somewhat drowsy. LUNGS: Breath sounds are heard in both sides with slight coarse breath sounds but no wheezing or no rales. HEART: Normal sinus rhythm ABDOMEN: Nontender The patient's oxygen saturation is 95% at room air, 13:26pm. The patient did consume 100% of dinner. She is still receiving Rocephin 1 gram daily and Levaquin 500mg daily. Blood culture is negative both left and right. Negative for strep. CONDITION: Improved. VITAL SIGNS: Stable MTDD
--- NOTE | 2019-01-07 14:43 | DS ---
DATE OF SERVICE: 01/04/19 PATIENT IDENTIFICATION: 48-year-old female , who has been complaining of cough for the last two to three weeks and given 10-day antibiotic course by her primary provider without any improvement. She presented to the emergency room on 01/02/19 because of shortness of breath and cough. CT of the chest shows mild pneumonitis according to the radiologist. The patient was afebrile. The procalcitonin is normal. WBC normal. Arterial blood gases showed hypoxemia, p02 59, oxygen saturation 89, pH 7.353, pc02 normal 42.7. CK and troponin were normal. The urine drug screen was positive for Benzo's. Influenza A and B nuclear amplification is negative. Physical examination on admission, at time of my examination on the floor, was somewhat drowsy but responsive and answers questions correctly. Lungs have some coarse breath sounds but no wheezing. No obvious rales. It is diminished. Heart is normal sinus rhythm. Abdomen unremarkable. Anterior tibial pulses are present. Posterior tibials are absent. She has scar on both knees from the TKR. This patient's primary care provider is in [place] and her psychiatrist is also in [place]. The patient received Rocephin 1 gm intravenously daily as well as Levaquin 500 mg daily. The patient's condition had improved, remained afebrile throughout her hospital stay. Her blood pressure had been stable and normal. The patient had not been using oxygen since yesterday and at one time her 02 saturation on room air was 88. I don't know if the placement was correct. Her oxygen saturation from 10 o'clock in the morning of 01/04/19 was 95 on room air, 95 at 2 o'clock and this patient had not been on any oxygen supplementation. The patient at time of discharge claimed that she is well, is feeling much better, she is ready to go home. The was in the room with her and the nurse accompanied me. Vital signs at 2 p.m. showed a temperature of 98.0, pulse 61, blood pressure 106 /72, respiratory rate 20, oxygen saturation 95 on room air. The patient claimed that she is feeling well and she has no shortness of breath but is still coughing mucus. I did tell them that she received two kinds of antibiotics , Rocephin as well as the Levaquin. Initially, I did not intend to continue any medication. I had reviewed the CT scan of the chest with the radiologist comparing the one done in 2016 and now with some difference. The radiologist mentioned that there is some slight thickening now than it use to be but there was no kiran consolidation. The neck has no masses, no bruits. Lungs clear to auscultation on both sides. No rales or wheezing. Heart is audible and regular with good tones. Abdomen nontender. The patient today is much brighter and more alert. I had mentioned to the patient and the that she needs to keep her appointment with the doctor and she told me that on 01/08/19 her appointment is with the psychiatrist and on 01/09/19 with the family physician. The two doctors are in the same office building. Both of these are in [place]. All of her medications are coming from those physicians. They were advised to keep this appointment and sent to any emergency room if they feel she needs it. I understood that she and her are going to [place] for their anniversary. I did not ask them how many days they would be there but just inform them that they should seek emergency room consultation if they feel it is needed. She did complain of some thrush in the mouth and examined it and there was no obvious whitish material on the tongue as well as the palate. Mycostatin oral suspension 100,000 international units per cc was prescribed, 5 cc to be swished around the mouth and spit four times a day. Prescribed Levaquin 500 mg tablet daily #5. I did advise her in the presence of her and nurse that she should probably discuss her medications. She was somewhat drowsy, more than usual when she came into the hospital and I am not sure if the medication has something to do with the drowsiness. She was arousable and does answer questions. She denied any pain in the legs and in fact, she was able to walk from Room 117 to the nurse's station asking for treatment for the thrush in the mouth. She was not short of breath when she presented to the nurse's station. INSTRUCTIONS: 1. She should resume all her previous medications as directed. 2. Keep the previous appointments with PCP and psychiatrist. 3. Stop smoking. 4. Discussed her medications with her PCP and psychiatrist. 5. Do not drive if drowsy or is able to drive. FINAL DIAGNOSES: 1. ACUTE EXACERBATION OF COPD 2. ACUTE RESPIRATORY FAILURE, CORRECTED 3. CHRONIC TOBACCO USE AND ABUSE, PERSISTENT 4. BMI ELEVATED 5. CHRONIC LUMBAR PAIN 6. POLY PHARMACY 7. HYPERTENSION, CONTROLLED 8. HYPOTHYROIDISM, REPLACED 9. HISTORY OF BIPOLAR DISORDER 10. HISTORY OF CHRONIC ANXIETY 11. HISTORY OF DEPRESSION, CHRONIC, SEEN BY PSYCHIATRIST IN [place] 12. HISTORY OF INSOMNIA 13. HISTORY OF RESTLESS LEG SYNDROME 14. HISTORY OF PREVIOUS SUBSTANCE ABUSE - COCAINE PROGNOSIS: Guarded TIME SPENT: GREATER THAN 30 MINUTES MTDD
== END 2019-01-04 16:17 | disposition home or self-care (01) | DRG 193 ==
LOC: ED 12:44 → MEDSURG B 14:24
PROVIDERS: ADMIT General Practice; ATTEND General Practice
DX: J18.9 Pneumonia, unspecified organism (principal); J96.00 Acute respiratory failure, unspecified whether with hypoxia or hypercapnia; J44.1 Chronic obstructive pulmonary disease with (acute) exacerbation; J06.9 Acute upper respiratory infection, unspecified; R06.02 Shortness of breath; R09.81 Nasal congestion; R50.9 Fever, unspecified; R63.0 Anorexia; R53.81 Other malaise; M54.5 Low back pain; I10 Essential (primary) hypertension; E03.9 Hypothyroidism, unspecified; G47.00 Insomnia, unspecified; N20.0 Calculus of kidney; Z72.0 Tobacco use; Z79.899 Other long term (current) drug therapy
CPT/HCPCS: 36415; 80053; 80306; 82550; 82803; 83605; 84145; 84484; 85025; 86710; 87040; 87502; 87651; 93005; 93010; 94640; 96365; 97802; 99284

== ENCOUNTER 2019-01-28 12:17 | Outpatient (CLI) ==
--- NOTE | 2019-01-28 14:41 | DI ---
Exam: Three views of the lumbar spine. Comparison: MRI performed 09/11/2013. Reason for exam: Low back pain. FINDINGS: No acute fracture or listhesis. The vertebral body and intervertebral body disc space hei ghts are relatively well maintained. There is straightening of the lumbar lordotic curve. Impression: No acute fracture or listhesis in the lumbar spine with mild degenerative disease
== END 2019-01-28 12:18 | disposition home or self-care (01) ==
LOC: RAD 12:17
PROVIDERS: ATTEND Physician Assistant
DX: M54.5 Low back pain (principal)

== ENCOUNTER 2019-02-17 10:27 | Emergency (ER) ==
[2019-02-17 10:35] VITALS: BP 108/75; TEMP 98.2; BMI 34.7
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
[2019-02-17] MEDS ORDERED: SILVADENE CREAM TP STA (10:57)
== END 2019-02-17 11:35 | disposition home or self-care (01) ==
LOC: ED 10:27
DX: T25.112A Burn of first degree of left ankle, initial encounter (principal); T25.111A Burn of first degree of right ankle, initial encounter; F17.210 Nicotine dependence, cigarettes, uncomplicated
CPT/HCPCS: 99283

== ENCOUNTER 2019-02-27 08:06 | Outpatient (CLI) | END 2019-02-27 08:07 | disposition home or self-care (01) | LOC: WOUND 08:06 | PROVIDERS: ATTEND Nurse Practitioner Family | DX: T24.231A Burn of second degree of right lower leg, initial encounter (principal); T24.232A Burn of second degree of left lower leg, initial encounter; I10 Essential (primary) hypertension; T31.20 Burns involving 20-29% of body surface with 0% to 9% third degree burns ==

== ENCOUNTER 2019-03-06 09:24 | Outpatient (CLI) | END 2019-03-06 09:25 | disposition home or self-care (01) | LOC: WOUND 09:24 | PROVIDERS: ATTEND Nurse Practitioner Family | DX: T24.231A Burn of second degree of right lower leg, initial encounter (principal); T24.232A Burn of second degree of left lower leg, initial encounter; I10 Essential (primary) hypertension; T31.20 Burns involving 20-29% of body surface with 0% to 9% third degree burns | CPT/HCPCS: 99213 ==

== ENCOUNTER 2019-03-13 09:20 | Outpatient (CLI) | END 2019-03-13 09:21 | disposition home or self-care (01) | LOC: WOUND 09:20 | PROVIDERS: ATTEND Nurse Practitioner Family | DX: T24.231A Burn of second degree of right lower leg, initial encounter (principal); T24.232A Burn of second degree of left lower leg, initial encounter; I10 Essential (primary) hypertension; T31.20 Burns involving 20-29% of body surface with 0% to 9% third degree burns ==

== ENCOUNTER 2019-04-12 11:00 | Outpatient (RCR) ==
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
--- NOTE | 2019-03-25 13:38 | RS.OTDNOTE ---
Subjective Date of Note: 03/25/19 Visit #: 2 Number of visits approved by Insurance: 8 Date of Evaluation: 03/15/19 Treatment Diagnosis: Pain in left elbow M25.522, S/P left elbow jt. replacement *Precautions: Pt is Left handed. Current Complaints/Gains: Pt with increased tactile stimulation with c/o pain at 9/10 upone entering therapy. States pain decreased to 4 at the end of session. States she has not been applying any CP to her UE and that she didn't know that would help with the swelling. Pt ed on homemade CP with alchol/water. Pain Assessment - Pain Description Pain Description: Burning Pain Location: Left elbow, Left wrist pain. Pain Description: sharp pain in wrist and elbow with supination and tactile stimuli Current Pain Intensity: 4 Worst Pain Intensity: 9 Modalities - Treatment Modality: Ultrasound Parameters/Method Applied: 50%, 3.3Mhz x 8 mins .4w/cm2 Treatment Area: elbow region Patient Position: Sitting - Hot Pack/Cryotherapy Treatment: Cryotherapy Comments:: x10 mins following tx Interventions - Exercise/Activities Exercise/Activities/Manual Therapy: Manual therapy/retrograde massage to decrease scar tissue/edema with pt ed on home program. AROM elbow flexon/ extension and wrist flexion/extension along with pro/supination. Pt ed on importance of HEP and utilizing CP following along with positonal ed(re- education of movement) for sitting/standing activities. HOME EXERCISE PROGRAM: Educated patient regarding AROM of supination of LUE and extension of elbow. Pt educated regarding no resistance or WB. - Other Treatment/Services Treatment Details: pt with increased AROM/understanding of home program - Charges Timed Code Treatment Minutes: 48 Total Treatment Time: 58 Procedures billed for this date of service:: [facility] CP MT US Assessment Patient Education: Education of diagnosis, Body/Joint mechanics, Home Exercise Program, Home Safety, Activity Modification, Education of Plan of Care Patient demonstrates compliance with HEP?: Yes Short Term Goals Goal #1: Pt to increase mass apartment groundskeeper of LUE to 30#. Goal to be met by: 03/29/19 Progress towards goal: Progressing Goal #2: Pt to increase supination of LUE to 75 deg to increase safety of carrying. Goal to be met by: 03/29/19 Progress towards goal: Progressing Goal #3: Pt to increase extension of elbow to -12 deg. Goal to be met by: 03/29/19 Progress towards goal: Progressing Goal #4: Pt to be independent with home exercise program. Goal to be met by: 03/29/19 Progress towards goal: Progressing Alf Goals Goal #1: Pt to increase mass apartment groundskeeper of LUE to 51#. Goal to be met by: 04/12/19 Progress towards goal: Progressing Goal #2: Pt to increase supination of LUE to 90 deg to increase safety of carrying. Goal to be met by: 04/12/19 Progress towards goal: Progressing Goal #3: Pt to increase extension of elbow to -5 deg. Goal to be met by: 04/12/19 Progress towards goal: Progressing Goal #4: Pt to be independent with self cares. Goal to be met by: 04/12/19 Progress towards goal: Progressing Plan Dates of Alf Goals: 04/12/19 Expiration date of current Insurance Approval:: 04/12/19 PLAN: Continue per POC to max functional UE AROM, decrease pain, and return to PLOF with ADL's.
--- NOTE | 2019-03-29 15:11 | RS.OTDNOTE ---
Subjective Date of Note: 03/29/19 Visit #: 3 Number of visits approved by Insurance: 8 Date of Evaluation: 03/15/19 Payer Source: Medicaid Treatment Diagnosis: Pain in left elbow M25.522, S/P left elbow jt. replacement *Precautions: Pt is Left handed. Current Complaints/Gains: Pt states she has made a ice-pack and has been utilizing it 2-3 times daily. States increase of pain to 8-9/10 at times. Pt admits to washing dishes including cast iron pots and agrees she is doing too much at home with use of her L UE. Pt phones MD office while sitting with CP and is informed her next visit is April 16. Pt also continues with c/o sensitivity and increased forearm/wrist pain. Pain Assessment - Pain Description Pain Description: Burning Pain Location: Left elbow, Left wrist pain. Pain Description: sharp pain in wrist and elbow with supination and tactile stimuli Current Pain Intensity: 4 Worst Pain Intensity: 8-9 Modalities - Treatment Modality: Ultrasound Parameters/Method Applied: .04w/cm2 x 8 mins - Hot Pack/Cryotherapy Treatment: Cryotherapy Comments:: CP x 10 mins Interventions - Exercise/Activities Exercise/Activities/Manual Therapy: Manual therapy/retrograde massage to decrease scar tissue/edema with pt ed on home program continued. AROM elbow flexon/extension and wrist flexion/extension along with pro/supination. Pt ed on importance of HEP and utilizing CP following along with positonal ed(re- education of movement) for sitting/standing activities. HOME EXERCISE PROGRAM: Educated patient regarding AROM of pronation/supination of LUE and extension/flexion of elbow. Pt educated regarding no resistance or WB and decreasing use of (L) UE during fx tasks at home. - Charges Timed Code Treatment Minutes: 48 Total Treatment Time: 59 Procedures billed for this date of service:: CP US EX MT Assessment Patient Education: Education of diagnosis, Body/Joint mechanics, Home Exercise Program, Home Safety, Activity Modification, Education of Plan of Care Patient demonstrates compliance with HEP?: Yes Short Term Goals Goal #1: Pt to increase mass cyber intelligence analyst of LUE to 30#. Goal to be met by: 03/29/19 Progress towards goal: Progressing Goal #2: Pt to increase supination of LUE to 75 deg to increase safety of carrying. Goal to be met by: 03/29/19 Progress towards goal: Progressing Goal #3: Pt to increase extension of elbow to -12 deg. Goal to be met by: 03/29/19 Progress towards goal: Met Goal #4: Pt to be independent with home exercise program. Goal to be met by: 03/29/19 Progress towards goal: Progressing Case Management Manager Goals Goal #1: Pt to increase mass cyber intelligence analyst of LUE to 51#. Goal to be met by: 04/12/19 Progress towards goal: Progressing Goal #2: Pt to increase supination of LUE to 90 deg to increase safety of carrying. Goal to be met by: 04/12/19 Progress towards goal: Progressing Goal #3: Pt to increase extension of elbow to -5 deg. Goal to be met by: 04/12/19 Progress towards goal: Progressing Goal #4: Pt to be independent with self cares. Goal to be met by: 04/12/19 Progress towards goal: Progressing Plan Dates of Case Management Manager Goals: 04/12/19 Expiration date of current Insurance Approval:: 04/12/19 PLAN: Continue per POC to max UE AROM/strength.
--- NOTE | 2019-04-01 14:10 | RS.OTDNOTE ---
Subjective Date of Note: 04/01/19 Visit #: 4 Number of visits approved by Insurance: 6-8 Date of Evaluation: 03/15/19 Payer Source: Medicaid Treatment Diagnosis: Pain in left elbow M25.522, S/P left elbow jt. replacement *Precautions: Pt is Left handed. Current Complaints/Gains: During tx, pt states she has held a 60# dog's leash, vacumned, and lifted heavy dishes during the wknd. Pt continued ed on precautions and pain maria teresa/ice. Pain Assessment - Pain Description Pain Description: Burning, Sharp, Dull, Throbbing, Aching Pain Location: Left elbow, Left wrist pain. Pain Description: sharp pain in wrist and elbow with supination and tactile stimuli Current Pain Intensity: 4 Worst Pain Intensity: 8 Other comments regarding pain:: Pt with c/o "nerve" pain from bicep to wrist area. Modalities - Treatment Modality: Ultrasound Parameters/Method Applied: .05w/xm2 x 10 mins Patient Position: Sitting - Hot Pack/Cryotherapy Treatment: Cryotherapy Comments:: X 10 mins following tx Interventions - Exercise/Activities Exercise/Activities/Manual Therapy: Manual therapy/retrograde massage to decrease scar tissue/edema with pt ed on home program continued. AROM elbow flexon/extension and wrist flexion/extension along with pro/supination. Pt ed on importance of HEP and utilizing CP following along with positonal ed(re- education of movement) for sitting/standing activities. HOME EXERCISE PROGRAM: Educated patient regarding AROM of pronation/supination of LUE and extension/flexion of elbow. Pt educated regarding no resistance or WB and decreasing use of (L) UE during fx tasks at home. - Other Treatment/Services Treatment Details: AROM WFL - Charges Timed Code Treatment Minutes: 48 Total Treatment Time: 58 Procedures billed for this date of service:: CP US MT NMR Assessment Patient Education: Education of diagnosis, Body/Joint mechanics, Home Exercise Program, Home Safety, Activity Modification, Education of Plan of Care Patient demonstrates compliance with HEP?: Yes Short Term Goals Goal #1: Pt to increase mass wire spooler of LUE to 30#. Goal to be met by: 03/29/19 Progress towards goal: Progressing Comments: 13# Goal #2: Pt to increase supination of LUE to 75 deg to increase safety of carrying. Goal to be met by: 03/29/19 Progress towards goal: Met Goal #3: Pt to increase extension of elbow to -12 deg. Goal to be met by: 03/29/19 Progress towards goal: Met Goal #4: Pt to be independent with home exercise program. Goal to be met by: 03/29/19 Progress towards goal: Partially Met Regulatory Affairs Director Goals Goal #1: Pt to increase mass wire spooler of LUE to 51#. Goal to be met by: 04/12/19 Progress towards goal: Progressing Goal #2: Pt to increase supination of LUE to 90 deg to increase safety of carrying. Goal to be met by: 04/12/19 Progress towards goal: Progressing Goal #3: Pt to increase extension of elbow to -5 deg. Goal to be met by: 04/12/19 Progress towards goal: Progressing Goal #4: Pt to be independent with self cares. Goal to be met by: 04/12/19 Progress towards goal: Progressing Plan Dates of Penitentiary Goals: 04/12/19 Expiration date of current Insurance Approval:: 04/12/19 PLAN: Continue per POC to max fx UE AROM/strength with decreased c/o pain
--- NOTE | 2019-04-04 13:12 | RS.OTDNOTE ---
Subjective Date of Note: 04/04/19 Visit #: 5 Number of visits approved by Insurance: 6-8 Date of Evaluation: 03/15/19 Payer Source: Medicaid Treatment Diagnosis: Pain in left elbow M25.522, S/P left elbow jt. replacement *Precautions: Pt is Left handed. Current Complaints/Gains: Pt is concerned that her strength will not come back. Pt ed on PRE's with MD approval and utillizing UE more with daily activities. Pain Assessment - Pain Description Pain Description: Burning, Sharp, Dull, Throbbing, Aching Pain Location: Left elbow, Left wrist pain. Pain Description: sharp pain in wrist and elbow with supination and tactile stimuli Current Pain Intensity: 2 Worst Pain Intensity: 6 Modalities - Hot Pack/Cryotherapy Treatment: Cryotherapy Comments:: CP X 10 mins following tx Interventions - Exercise/Activities Exercise/Activities/Manual Therapy: Manual therapy/retrograde massage to decrease scar tissue/edema with pt ed on home program continued. AROM elbow flexon/extension and wrist flexion/extension along with pro/supination. Pt ed on importance of HEP and utilizing CP following along with positonal ed(re- education of movement) for sitting/standing activities continued. Red tputty and yellow and red digi-flex ex's performed along with 1# hand weight for wrist flexion/extension with UE WB on table-top. PNF/D1, D2 AROM also performed. HOME EXERCISE PROGRAM: Educated patient regarding AROM of pronation/supination of LUE and extension/flexion of elbow. Pt educated regarding no resistance or WB and decreasing use of (L) UE during fx tasks at home. - Other Treatment/Services Treatment Details: AROM ROM WFL with pain decreasing. Swelling also decreased along with decreased scar sensitivity. - Charges Timed Code Treatment Minutes: 42 Total Treatment Time: 54 Procedures billed for this date of service:: CP MT EX NMR Assessment Patient Education: Education of diagnosis, Body/Joint mechanics, Home Exercise Program, Home Safety, Activity Modification, Education of Plan of Care Patient demonstrates compliance with HEP?: Yes Short Term Goals Goal #1: Pt to increase mass associate professor of education of LUE to 30#. Goal to be met by: 03/29/19 Progress towards goal: Progressing Goal #2: Pt to increase supination of LUE to 75 deg to increase safety of carrying. Goal to be met by: 03/29/19 Progress towards goal: Met Goal #3: Pt to increase extension of elbow to -12 deg. Goal to be met by: 03/29/19 Progress towards goal: Met Goal #4: Pt to be independent with home exercise program. Goal to be met by: 03/29/19 (PRES) Progress towards goal: Partially Met [employer] Law Clerk Goals Goal #1: Pt to increase mass associate professor of education of LUE to 51#. Goal to be met by: 04/12/19 Progress towards goal: Progressing Goal #2: Pt to increase supination of LUE to 90 deg to increase safety of carrying. Goal to be met by: 04/12/19 Progress towards goal: Progressing Goal #3: Pt to increase extension of elbow to -5 deg. Goal to be met by: 04/12/19 Progress towards goal: Progressing Goal #4: Pt to be independent with self cares. Goal to be met by: 04/12/19 Progress towards goal: Progressing Plan Dates of [facility] Goals: 04/12/19 Expiration date of current Insurance Approval:: 04/12/19 PLAN: Continue per POC
--- NOTE | 2019-04-10 13:13 | RS.OTDNOTE ---
Subjective Date of Note: 04/10/19 Visit #: 6 Number of visits approved by Insurance: 8 Date of Evaluation: 03/15/19 Payer Source: Medicaid Treatment Diagnosis: Pain in left elbow M25.522, S/P left elbow jt. replacement *Precautions: Pt is Left handed. Current Complaints/Gains: Pt with increased c/o pain in dorsal forearm and into bicep. States a 60# dog jumped on her UE and that she has been lifting and cleaning her cat's litter box. Pain Assessment - Pain Description Pain Description: Burning, Sharp, Dull, Throbbing, Aching Modalities - Treatment Modality: Ultrasound Parameters/Method Applied: bicep tendon and dorsal forearm US x 12 mins total Patient Position: Sitting - Hot Pack/Cryotherapy Treatment: Cryotherapy Comments:: x10 mins following tx Interventions - Exercise/Activities Exercise/Activities/Manual Therapy: Manual therapy/retrograde massage to decrease scar tissue/edema with pt ed on home program continued. AROM elbow flexon/extension and wrist flexion/extension along with pro/supination. Pt ed on importance of HEP and utilizing CP following along with positonal ed(re- education of movement) for sitting/standing activities continued. Blue tputty and red/green digi-flex ex's performed along with 1# hand weight for wrist flexion/extension with UE WB on table-top. PNF/D1, D2 AROM also performed. HOME EXERCISE PROGRAM: Educated patient regarding AROM of pronation/supination of LUE and extension/flexion of elbow. Pt educated regarding no resistance or WB and decreasing use of (L) UE during fx tasks at home. - Objective Findings Objective Findings:: Elbow flexion/extension WNL - Charges Timed Code Treatment Minutes: 48 Total Treatment Time: 59 Procedures billed for this date of service:: CP US MT EX Assessment Patient Education: Education of diagnosis, Body/Joint mechanics, Home Exercise Program, Home Safety, Activity Modification, Education of Plan of Care Patient demonstrates compliance with HEP?: Yes Short Term Goals Goal #1: Pt to increase mass environmental project manager of LUE to 30#. Goal to be met by: 03/29/19 (17#) Progress towards goal: Progressing Goal #2: Pt to increase supination of LUE to 75 deg to increase safety of carrying. Goal to be met by: 03/29/19 Progress towards goal: Met Goal #3: Pt to increase extension of elbow to -12 deg. Goal to be met by: 03/29/19 Progress towards goal: Met Goal #4: Pt to be independent with home exercise program. Goal to be met by: 03/29/19 (PRES) Progress towards goal: Partially Met [facility] Goals Goal #1: Pt to increase mass environmental project manager of LUE to 51#. Goal to be met by: 04/12/19 Progress towards goal: Progressing Goal #2: Pt to increase supination of LUE to 90 deg to increase safety of carrying. Goal to be met by: 04/12/19 Progress towards goal: Partially Met Goal #3: Pt to increase extension of elbow to -5 deg. Goal to be met by: 04/12/19 Progress towards goal: Partially Met Goal #4: Pt to be independent with self cares. Goal to be met by: 04/12/19 Progress towards goal: Partially Met Plan Dates of [facility] Goals: 04/12/19 Expiration date of current Insurance Approval:: 04/12/19 PLAN: Continue tx x 1 session. pt to return to MD on April 16.
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
--- NOTE | 2019-04-15 09:10 | RS.OTDNOTE ---
Subjective Date of Note: 04/12/19 Visit #: 7 Number of visits approved by Insurance: 24 Date of Evaluation: 03/15/19 Payer Source: Medicaid Treatment Diagnosis: Pain in left elbow M25.522, S/P left elbow jt. replacement *Precautions: Pt is Left handed. Current Complaints/Gains: Pt continues with c/o pain but demo AROM of elbow WFL. Pt states "pain and knots" in subscapularis and brachii tendon with increased tenderness to tactile stimulation. Pain Assessment - Pain Description Pain Description: Burning, Sharp, Dull, Throbbing, Aching Pain Location: Left elbow, Left wrist pain. Pain Description: sharp pain in wrist and elbow with supination and tactile stimuli Modalities - Treatment Modality: Ultrasound Parameters/Method Applied: 1.5w/cm2 x 10 mins Patient Position: Sitting - Hot Pack/Cryotherapy Treatment: Cryotherapy Comments:: CP x 10 mins following tx Interventions - Exercise/Activities Exercise/Activities/Manual Therapy: Manual therapy/retrograde massage to decrease scar tissue/edema with pt ed on home program continued. AROM elbow flexon/extension and wrist flexion/extension along with pro/supination. Pt ed on importance of HEP and utilizing CP following along with positonal ed(re- education of movement) for sitting/standing activities continued. Blue tputty and red/green digi-flex ex's performed along with 1# hand weight for wrist flexion/extension with UE WB on table-top. PNF/D1, D2 AROM also performed. HOME EXERCISE PROGRAM: Educated patient regarding AROM of pronation/supination of LUE and extension/flexion of elbow. Pt educated regarding no resistance or WB and decreasing use of (L) UE during fx tasks at home. - Objective Findings Objective Findings:: Elbow flexion/extension WNL - Charges Timed Code Treatment Minutes: 59 Total Treatment Time: 62 Procedures billed for this date of service:: CP US MT EX Assessment Patient Education: Education of diagnosis, Body/Joint mechanics, Home Exercise Program, Home Safety, Activity Modification, Education of Plan of Care Patient demonstrates compliance with HEP?: Yes Short Term Goals Goal #1: Pt to increase mass medical doctor nuclear medicine of LUE to 30#. Goal to be met by: 03/29/19 (10# this date) Progress towards goal: Progressing Goal #2: Pt to increase supination of LUE to 75 deg to increase safety of carrying. Goal to be met by: 03/29/19 Progress towards goal: Met Goal #3: Pt to increase extension of elbow to -12 deg. Goal to be met by: 03/29/19 Progress towards goal: Met Goal #4: Pt to be independent with home exercise program. Goal to be met by: 03/29/19 (PRES) Progress towards goal: Partially Met Night Worker Goals Goal #1: Pt to increase mass medical doctor nuclear medicine of LUE to 51#. Goal to be met by: 04/12/19 Progress towards goal: Progressing Goal #2: Pt to increase supination of LUE to 90 deg to increase safety of carrying. Goal to be met by: 04/12/19 Progress towards goal: Partially Met Goal #3: Pt to increase extension of elbow to -5 deg. Goal to be met by: 04/12/19 Progress towards goal: Partially Met Goal #4: Pt to be independent with self cares. Goal to be met by: 04/12/19 Progress towards goal: Partially Met Plan Dates of Night Worker Goals: 05/10/19 Expiration date of current Insurance Approval:: 05/10/19 PLAN: OTR reassessed pt's progress this date with LTG's extened to 05/10/19 if pt recieves continuation orders from MD. Pt returns to MD on April 16. Pt instructed to phone therapy following MD appointment.
== END 2019-04-12 23:59 ==
PROVIDERS: ATTEND Orthopaedic Surgery
DX: M25.522 Pain in left elbow (principal); Z96.622 Presence of left artificial elbow joint

== ENCOUNTER 2019-07-03 13:54 | Outpatient (CLI) ==
--- NOTE | 2019-07-03 15:58 | DEXA ---
EXAM: Bone Densitometry DEXA HISTORY: Postmenopausal, fracture FINDINGS: DEXA scan of the lumbar spine was performed. Quality of the study is good. Bone mineral density is 1.135 grams per square centimeter. T-score is negative 0.4. Z-score is negative 1.0. DEXA scan right and left hip was performed. Quality of the study is good. Bone mineral density mean total is 1.014 grams per square centimeter. T-score is 0.0. Z-score is negative 0.3. Bone mineral density of the femoral neck mean total is 0.987 with a T score of negative 0.4 and a Z score of nega tive point.. IMPRESSION: 1. Lumbar spine: Normal bone marrow density. 2. Right and left hip: Normal bone marrow density 3. Right and left femoral neck: Normal bone marrow density 4. 10 year risk for major osteoporotic fracture is 7.6% and for hip fracture is 0.5%. Reference Values according to World Health Organization criteria: T score greater than -1 is normal T score -1 to -2.5 is osteopenia T score less than -2.5 is osteoporosis.
== END 2019-07-03 13:55 | disposition home or self-care (01) ==
LOC: RAD 13:54
PROVIDERS: ATTEND Family Medicine
DX: E89.40 Asymptomatic postprocedural ovarian failure (principal); Z87.81 Personal history of (healed) traumatic fracture

== ENCOUNTER 2019-07-04 12:26 | Emergency (ER) ==
[2019-07-04 12:30] VITALS: BP 77/54; TEMP 98.3; BMI 35.9
--- NOTE | 2019-07-04 13:44 | ED.PDOC ---
General ED Provider: Dr. JULIET MART Chief Complaint: Non-specific Complaint Stated Complaint: I was put on antibiotics (generic Biaxin) yesterday by the clinic. I was supposed to get a chest xray and see Dr. Garrison next week. I need something for cough. I am having swallowing difficulty and can see Dr. Garrison for this next week. Time Seen by Physician: 13:30 Mode of Arrival: Walk-In Information Source: Patient Exam Limitations: Intoxication (apparent with slurred speach - gives most of the recent history; patient is able to say that she wants a referral from us to see Dr. Garrison next week.) Primary Care Provider: APRIL GARRISON Nursing and Triage Documentation Reviewed and Agree: Yes Does patient meet sepsis criteria?: No System Inflammatory Response Syndrome: Not Applicable Sepsis Protocol: For patient's 13 years and over: Temp is 96.8 and below OR 101 and greater Pulse >90 BPM Resp >20/minute Acutely Altered Mental Status Are patient's symptoms suggestive of a new infection, such as: -Pneumonia -Skin, Soft Tissue -Endocarditis -UTI -Bone, Joint Infection -Implantable Device -Acute Abdominal Infection -Wound Infection -Meningitis -Blood Stream Catheter Infection -Unknown Review of Systems - Review Of Systems Constitutional: Reports: Malaise Respiratory: Reports: Cough All Other Systems: Reviewed and Negative Past Medical History - Past Medical History Previously Healthy: No Endocrine: Reports: Hypothyroid Cardiovascular: Reports: Hypertension Respiratory: Reports: Asthma, Bronchitis Hematological: Reports: None Gastrointestinal: Reports: None Genitourinary: Reports: None Neuro/Psych: Reports: None Musculoskeletal: Reports: None Cancer: Reports: None Last Menstrual Period: N/A - Surgical History General Surgical History: Reports: Hysterectomy, Orthopedic (Knee replacement, arm sling ), Other (colon surgery ) - Family History Family History: Reports: Unknown - Social History Smoking Status: Current every day smoker, Heavy tobacco smoker Hx Substance Use: Yes (recovering addict (cocaine)) Alcohol Screening: None - Immunizations Tetanus Shot up to Date: No Influenza Vaccine within 12 Months: No Pneumococcal Vaccine up to Date: No Physical Exam - Physical Exam Appearance: Well-appearing Ill-appearing: None Pain Distress: None Eyes: Right pupil size (3 mm), Left pupil size (3 mm) ENT: Oropharynx normal Neck: Supple Respiratory: Airway patent, Breath sounds equal, Rhonchi (bilaterl posterior bases) GI/: Soft Skin: Warm, Dry, Normal color Neurological: Sensation intact, Alert (Slurred speach; poor historian) Psychiatric: Affect appropriate (Responding to questions appropriately ) Interpretation - Radiology Interpretation Radiology Interpretation By: Radiologist Radiology Results: Positive (possible pneumonitis) Exam Interpreted: CXR Re-Evaluation - Re-Evaluation Time of Re-Evaluation: 14:20 (Patient is with family who provided initial information re antibiotic started yesterday; patient is with very slurred speach as noted by RN on intake) Status: Unchanged Critical Care Note - Critical Care Note Total Time (mins): 10 Course - Course Orders, Labs, Meds: Orders Category Date Time Status CHEST, 2 VIEWS PA & LAT Stat RADS 07/04/19 13:45 Completed Vital Signs: Temp Pulse Resp BP Pulse Ox 07/04/19 12:27 98.3 F 71 18 77/54 L 93 L Departure - Departure Time of Disposition: 14:51 Disposition: HOME SELF-CARE Discharge Problem: Bronchitis, Pneumonitis Instructions: Pneumonitis (ED) Condition: Stable Pt referred to PMD for follow-up: Yes (Call for appointment with Dr. Garrison ) MP verified?: No Additional Instructions: Continue with the antibiotic prescribed yesterday; follow up with Dr. Garrison next week - call for apointment. Let them know that you were seen in the ER and that a chest x-ray was done. Allergies/Adverse Reactions: Allergies amoxicillin Adverse Reaction (Verified 07/04/19 12:30) clarithromycin [From Biaxin] Adverse Reaction (Verified 07/04/19 12:30) duloxetine HCl [From Cymbalta] Adverse Reaction (Verified 07/04/19 12:30) venlafaxine [From Effexor] Adverse Reaction (Verified 07/04/19 12:30) Home Medications: Ambulatory Orders Levothyroxine Sodium [Synthroid] 125 mcg PO DAILY 10/03/13 Carbidopa/Levodopa [Sinemet 25-100 mg Tablet] 1 each PO BEDTIME 07/16/16 Propranolol HCl [Inderal] 20 mg PO BID 07/16/16 Atorvastatin Calcium [Lipitor] 20 mg PO BEDTIME 11/23/16 Budesonide/Formoterol Fumarate [Symbicort 80-4.5 Mcg Inhaler] 2 puff IH BID 09/29 Prazosin HCl [Minipress] 2 mg PO DAILY 11/23/16 Ranitidine HCl [Zantac] 150 mg PO BIDAC 11/23/16 Gabapentin 800 mg PO QID 03/16/17 Carbamazepine [Tegretol] 300 mg PO BID 06/22/18 Diazepam 10 mg PO QID 06/22/18 Escitalopram Oxalate [Lexapro] 20 mg PO DAILY 06/22/18 Hydroxyzine Pamoate 100 mg PO BEDTIME 01/02/19 Prazosin HCl 6 mg PO BEDTIME 01/02/19 Tiotropium [place] [Spiriva] 18 mcg IH DAILY 01/02/19 Trazodone HCl 200 mg PO BEDTIME 01/02/19 Umeclidinium [place] [Incruse Ellipta] 62.5 mcg IH DAILY 01/02/19 Zolpidem Tartrate [Ambien] 10 mg PO BEDTIME 01/02/19 Hydrocodone/Acetaminophen [[place] 5-325 Tablet] 1 each PO Q6HR PRN #12 tablet 05/31 Disposition Discussed With: Patient
--- NOTE | 2019-07-04 14:24 | DI ---
EXAM: Chest two views HISTORY: Cough COMPARISON: 07/19/2018 TECHNIQUE: Two views of the chest were performed FINDINGS: Heart is enlarged, unchanged. Mediastinal contour unchanged. No visible pneumothorax. G ranulomatous calcification. Interstitial prominence. IMPRESSION: Cardiomegaly. The interstitial prominence may represent interstitial edema and/or pneum onitis.
== END 2019-07-04 15:15 | disposition home or self-care (01) ==
LOC: ED 12:26
DX: J40 Bronchitis, not specified as acute or chronic (principal); J18.9 Pneumonia, unspecified organism; F17.210 Nicotine dependence, cigarettes, uncomplicated
CPT/HCPCS: 99283

== ENCOUNTER 2019-07-19 08:23 | Outpatient (CLI) ==
[2019-07-17 17:26] VITALS: BMI 33.6
--- NOTE | 2019-07-19 09:24 | DI ---
EXAM: Single contrast esophagram. History: Dysphagia. Technique: Patient was given oral barium and multiple spot films of the esophagus and gastroesophage al junction were obtained in various projections. Findings: The course and caliber of the esophagus are within normal limits. No mucosal lesions or f illing defects identified. The gastroesophageal junction is normal. No hiatal hernia. No gastroeso phageal reflux. No gastric outlet obstruction. Impression: Normal study
== END 2019-07-19 08:24 | disposition home or self-care (01) ==
LOC: RAD 08:23
PROVIDERS: ATTEND Family Medicine
DX: R13.10 Dysphagia, unspecified (principal); R53.83 Other fatigue; Z79.899 Other long term (current) drug therapy

== ENCOUNTER 2019-07-22 14:55 | Outpatient (CLI) ==
[2019-07-22 10:19] VITALS: BMI 34.7
== END 2019-07-22 15:18 | disposition short-term general hospital (02) ==
LOC: AMBL 14:55
PROVIDERS: ATTEND Internal Medicine
DX: R51 Headache (principal); R07.9 Chest pain, unspecified